=== PATIENT | female | born 1990 | race Caucasian/White ===

== ENCOUNTER 2024-10-23 19:12 | Inpatient (IN) | payer MEDICAID, SELFPAY ==
[2024-10-23] VITALS (33 sets, daily range): BP systolic 59–259; BP diastolic 40–193; PULSE 90–112; RESP 16–36; TEMP 35.6; O2SAT 95–100
--- NOTE | 2024-10-23 19:30 | RT.EKG_ITS ---
APPROVED REPORT Exam: Resting ECG Reason for Exam: liver failure Patient Location: E HR:102 bpm ECG Measurements Heart Rate 102 AXIS CA [id number] P 0 QRSd 94 QRS 35 QT 368 T [id number] QTc 480 Conclusion Sinus tach, rate 102 No interval abnormalities No STEMI No priors available for comparison
--- NOTE | 2024-10-23 19:30 | DI.CT_ITS ---
Exam(s) CT HEAD WO EXAM: CT HEAD WO CLINICAL HISTORY: Falls, cirrhosis, eval bleeds. TECHNIQUE: Imaging Protocol: Axial computed tomography images with coronal and sagittal reformatted images were created and reviewed COMPARISON: No exams were available for comparison FINDINGS: Ventricles and Extra axial spaces: Normal in size and morphology for the patient's age. Hemorrhage: None. Cerebral parenchyma: Normal. Midline shift: None. Brainstem/Cerebellum: Normal. Calvarium: Normal. Visualized Paranasal sinuses/Mastoids: There is a fluid level seen in the right sphenoid sinus. This may represent an acute sinusitis. Soft Tissues: Unremarkable. IMPRESSION: No acute intracranial process. RADIATION DOSE DELIVERED: 845.03mGy.cm Total DLP DATA REPOSITORY: All CT scans at this facility are submitted to the National Radiology Data Registry (NRDR) Dose Index Registry (DIR) with the [employer] (ACR). RADIATION OPTIMIZATION: All CT scans at this facility use at least one of these dose optimization te chniques: automated exposure control; mA and/or kV adjustment per patient size (includes targeted exa ms where dose is matched to clinical indication); or iterative reconstruction.
--- NOTE | 2024-10-23 19:30 | DI.CT_ITS ---
Exam(s) CT CHEST/ABD/PEL W EXAM: CT CHEST/ABD/PEL W CLINICAL HISTORY: Ascites, multiple falls, bruises TECHNIQUE: Imaging Protocol: Axial computed tomography images with coronal and sagittal reformatted images were created and reviewed. Lung Computer Aided Detection (CAD) was utilized. CONTRAST MATERIAL: Intravenous: Omnipaque 350 contrast volume:100 mL Oral: yes / no COMPARISON: No exams were available for comparison FINDINGS: The examination is limited due to patient motion artifact. CHEST: Tracheobronchial tree: Patent where visualized. No evidence of bronchiectasis. Pulmonary parenchyma: There are pulmonary opacities seen in the right upper, right middle and right l ower lobes. This may represent pneumonia or possible contusions. No architectural distortion. Mediastinum and Corrina: No dominant adenopathy or fluid collection. The esophagus is unremarkable. Pleura: No effusion or pneumothorax. Heart: Mild cardiomegaly. No coronary artery calcifications are seen. No pericardial effusion. Pulmonary arteries: Due to the timing of the bolus, opacification of the pulmonary arteries suboptima l for evaluation of pulmonary emboli. Aorta: Thoracic aorta non-dilated. Lymph nodes: Within normal limits. Soft tissues: Unremarkable. Bones:Within normal limits for the patient's age. There is a old nonunited right 11th rib fracture. No acute displaced rib fractures are present. ABDOMEN: Liver: The liver is enlarged with a nodular contour suspicious for hepatic cirrhosis. There abdomina l varices present. Moderate abdominal pelvic ascites is present. No measurable mass. Portal, Superior Mesenteric, and Splenic Veins: Unremarkable. Gallbladder and Biliary Tract: No radiodense calculus or dilation. Pancreas: Normal density, no abnormal calcifications or inflammatory process. Spleen: For limits of normal in size. Adrenals: No masses seen. Kidneys: Normal size, contour and axis. No radiodense stones or obstructive uropathy. No masses seen. Abdominal Aorta: Abdominal portion non-dilated. Bowel: No obstruction or bowel wall thickening. No evidence of appendicitis. Peritoneal Cavity: Moderate amount of abdominal pelvic ascites. No free air. Lymph Nodes: Within normal limits. Bones: Within normal limits for the patient's age. Soft Tissues: There is edema seen in the soft tissues in the lower abdomen and pelvis. No radiopaque foreign bodies are seen. There is mild skin thickening seen in the pannus which may reflect an acut e cellulitis. Please correlate clinically. PELVIS: Bladder: Symmetric distention, no gross wall thickening. Reproductive Organs: There does appear to be a small fibroid at the anterior aspect of the fundus of the uterus. Lymph Nodes: Within normal limits. Bones: Within normal limits. IMPRESSION: 1. There is patient motion artifact which limits examination. 2. Infiltrate seen in the right lung as described above. This may represent pneumonia. Contusions c annot be entirely excluded. Please correlate clinically. 3. No acute fracture. 4. Findings of hepatic cirrhosis with abdominal and pelvic ascites and and suspected portal venous hy pertension with abdominal varices. 5. Edema in the abdominal wall which can be seen with anasarca. Please correlate clinically. 6. No evidence of abdominal or pelvic organ injury. RADIATION DOSE DELIVERED: 1,794.64mGy.cm Total DLP DATA REPOSITORY: All CT scans at this facility are submitted to the National Radiology Data Registry (NRDR) Dose Index Registry (DIR) with the [employer] (ACR). RADIATION OPTIMIZATION: All CT scans at this facility use at least one of these dose optimization te chniques: automated exposure control; mA and/or kV adjustment per patient size (includes targeted exa ms where dose is matched to clinical indication); or iterative reconstruction.
[2024-10-23 19:53] LABS: Absolute Lymphocyte Count 1.22 10^3/uL (1.2-3.4); Basophils % 0.3 %; Eosinophils % 0.6 %; HCT 21.6 % (36.0-46.0); HGB 7.8 g/dL (11.2-15.7); Immature Grans % 0.6 %; Lymphocytes % 7.7 %; MCH 37.7 pg (27.0-33.0); MCHC 36.1 % (32.0-36.0); MCV 104 fL (80-95); Monocytes % 9.1 %; Neutrophils % 81.7 %; Platelet Count 138 10^3/uL (130-400); RBC 2.07 10^6/uL (3.93-5.22); RDW-SD 56.2 fL; WBC 15.88 10^3/uL (4.4-10.8)
[2024-10-23 19:54] LABS: Absolute Basophil Count 0.05 10^3/uL (0.0-0.2); Absolute Monocyte Count 1.45 10^3/uL (0.1-0.8); Absolute Neutrophil Count 12.97 10^3/uL (1.2-6.7)
--- NOTE | 2024-10-23 19:56 | ED.GENADUL_ITS ---
Discharge Plan Disposition Patient Disposition: Admit to [facility] Condition: Serious Discharge Details Chief Complaint: GenMedical Clinical Impression: Acute liver failure, Acute hepatic encephalopathy, Anemia, Acute hyponatremia, Hypokalemia, Hypomagnesemia, Jaundice Primary Care Provider: Dasia Mullins ED Provider: Eli Miller Home Meds and New Rx's Prescriptions: No Action Daily Multiple 1 EACH tablet 1 tab-cap PO DAILY norethindrone ac-eth estradiol [Loestrin 08/09 (21)] 1 EACH tablet 1 tab-cap PO DAILY Qty: 3 3RF baclofen 5 mg tablet 5 mg PO QHS citalopram 20 mg tablet 20 mg PO DAILY gabapentin 300 mg capsule 300 mg PO DIRECTED Rx Instructions: Take two capsules twice a day and three at HS norethindrone-e.estradiol-iron [Giulia 24 Fe] 1 mg-20 mcg (24)/75 mg (4) tablet 1 tab PO DAILY naltrexone 50 mg tablet 50 mg PO DAILY pantoprazole 40 mg tablet,delayed release (DR/EC) 40 mg PO BID ibuprofen [Advil Liqui-Gel] 200 MG capsule 800 mg PO PRN PRN HPI General Mode of arrival: wheelchair . Date/Time Provider Initiated Documentation: 10/23/24 19:26 . Limitations to Documentation: altered mental status . Information obtained by: patient, family and old records reviewed . HPI Narrative: HPI: This is a 33-year-old female patient with a past medical history significant for alcohol use disorder, alcoholic cirrhosis, gastritis, and anemia who is presenting for evaluation of jaundice and altered mental status. Of note, the patient was brought here by her family members, initially was refusing to enter the building, this is her second presentation tonight and this care of family. She was brought in by wheelchair for an evaluation. The patient reports that for the last week or so she has been increasingly jaundiced, states that this is in the setting of a recurrence of binge drinking. She states that she does not want to be in the hospital because all I have to do is drink lots of water and we will flush it out of my system and I will be fine. The patient is notably distracted, picking at her fingernails and her hair during this provider's examination, roving eye movements. Family reports that the patient has had numerous social stressors, and recently relapsed and was drinking heavily. The patient has not been seen for her liver disease in several months. Exam: Gen: Awake and alert, appears significantly ill HEENT: Scleral icterus appreciated, pupils sluggish but reactive at 3 mm bilaterally, EOMs are full without nystagmus to the patient does have some roving eye movements during EOM testing. Neck: Supple Lungs: No apparent respiratory distress, normal respiratory effort. Lung sounds clear and equal bilaterally without wheezes, rhonchi, rales CV: Appears well perfused, heart with tachycardic rate but regular rhythm, strong distal pulses Abdomen: Distended but soft, nontender MSK: Moves 4 extremities without apparent limitation in ROM. Peripheral edema is noted x 4 extremities. Patient has ecchymosis to the dorsal aspect of the right hand without deformity or tenderness Skin: Visualized skin significantly jaundiced, with extensive ecchymosis over the entirety of the patient's torso and abdomen. Neuro: Poor balance with transfer from wheelchair to bed, symmetrical strength and no reported sensory deficits. The patient is alert, oriented to person and place only, not to time. Bilateral asterixis present MDM: This is a 33-year-old female patient presenting for evaluation of jaundice. My differential includes but is not limited to liver failure/cirrhosis exacerbation, likely alcoholic in the setting of her recent binge drinking. I certainly considered hepatorenal and hepatic cardiac disease, coagulopathy, anemia, thrombocytopenia. Consider dehydration, kidney injury. The patient had negative hepatitis testing several years ago. Considered hepatic encephalopathy, SBP though the patient is without fever or abdominal pain. Considered intracranial hemorrhage, intrathoracic and abdominal injuries due to her trauma/falls. At this time, the patient is not oriented to time, and is not able to demonstrate capacity during this provider's examination as to the severity of her illness and cannot verbalize the benefits of staying in the hospital as well as the risks of refusal of care/leaving the hospital AGAINST MEDICAL ADVICE. Given her significant medical comorbidities and numerous traumatic incidents, I do not feel that this patient has the capacity to refuse care at this time, and she was placed on a medical hold. The patient was informed of this and transferred to the hospital bed for evaluation and workup. We will obtain an EKG, laboratory studies to include CBC, CMP, magnesium, troponin, INR, ammonia, type and screen, ethanol, and urinalysis. I will obtain a CT of the brain as well as chest abdomen pelvis to evaluate for traumatic injuries. ED Course: EKG reviewed by myself, showing a sinus tachycardia without evidence of ischemia or significant interval abnormality. I reviewed the patient's laboratory studies, and I note a white count of 15.8, anemia to 7.8, no thrombocytopenia. INR is elevated at 3.1. Ammonia is 40, initial Trope was negative, metabolic panel concerning for hyponatremia to 123, low potassium of 2.7, and a creatinine of 1.5. Magnesium also slightly low at 1.5, bilirubin markedly elevated at 31.7 total, AST 294 and ALT 73, alkaline phosphatase 148. BNP elevated 20,000, albumin low at 1.9. Lipase is 150, less than 3 times the upper limit of normal and unlikely to represent acute pancreatitis. Given the above spectrum of laboratory abnormalities I am quite concerned for liver failure, with associated early hepatic encephalopathy. Meld?NA+ 38. The patient's potassium and magnesium were repleted, I reviewed the CT imaging which shows no evidence of intracranial hemorrhage or other abnormality, diffuse anasarca and ascites is appreciated but no traumatic findings on CT abdomen and pelvis. Small opacity which may represent aspiration pneumonia, in this patient with no hypoxia or fever we will hold on empiric antibiosis. I did reach out to [facility] and discussed this patient's case with their hepatology fellow. Unfortunately, they are not a transplant center and given the patient's young age and severe liver failure they did recommend reaching out to transfer centers of facilities that perform transplant. I reached out initially to [facility], who unfortunately is not accepting patients for their transplant evaluations until Friday. Given the anticipated difficulty with transfer at this time of night, the decision was made to admit this patient to our hospitalist team, with a plan to call facilities back in the morning or on Friday. The patient consented to admission, and was graciously accepted by the hospitalist service for ongoing workup and management. She remained hemodynamically appropriate while under my care. Eli Miller MD Related Data Home Medications ?Medication ?Instructions ?Recorded ?Confirmed ibuprofen 200 mg capsule (Advil 800 mg PO PRN PRN 05/01/17 12/05/21 Liqui-Gel) multivitamin-ferrous 1 tab-cap PO DAILY 05/13/17 12/05/21 fumarate-folic acid 18 mg-400 mcg tablet (Daily Multiple) norethindrone acetate 1 mg-ethinyl 1 tab-cap PO DAILY ##3 05/13/17 12/05/21 estradiol 20 mcg tablet (Loestrin) baclofen 5 mg tablet 5 mg PO QHS 12/04/21 12/05/21 citalopram 20 mg tablet 20 mg PO DAILY 12/04/21 12/05/21 gabapentin 300 mg capsule 300 mg PO DIRECTED 12/04/21 12/05/21 naltrexone 50 mg tablet 50 mg PO DAILY 12/04/21 12/05/21 norethindrone 1 mg-ethinyl 1 tab PO DAILY 12/04/21 12/05/21 estradiol 20 mcg (24)-iron 75 mg (4) tablet (Giulia 24 Fe) pantoprazole 40 mg tablet,delayed 40 mg PO BID 12/04/21 12/05/21 release Previous Rx's ?Medication ?Instructions ?Recorded norethindrone acetate 1 mg-ethinyl 1 tab-cap PO DAILY ##3 05/13/17 estradiol 20 mcg tablet (Loestrin) Allergies Allergy/AdvReac Type Severity Reaction Status Date / Time No Known Allergies Allergy Unverified 12/05/21 11:16 General Stated Complaint: GenMedical KEIKO: 3 Course Vital Signs Vital signs: Vital Signs Respiratory Rate 20 10/23/24 19:24 Temperature 35.6 C L 10/23/24 19:27 Temperature Source Tympanic 10/23/24 19:27 Pulse 99 H 10/23/24 19:27 Respiratory Rate 18 10/23/24 19:27 Respiratory Effort Labored 10/23/24 19:24 Respiratory Depth Normal 10/23/24 19:24 Respiratory Pattern Normal 10/23/24 19:24 Blood Pressure 127/69 10/23/24 19:27 Pulse Oximetry 100 10/23/24 19:27 Oxygen Delivery Method Room Air 10/23/24 19:27 Medical Decision Making Quality:SDOH Health Related Social Needs: No Data to Display Critical Care Time Critical Care Time Critical Care Time: Yes Total Critical Care Time: 50 Attestation: Upon my evaluation, this patient had a high probability of imminent or life- threatening deterioration due to acute liver failure due to alcoholic cirrhosis, hepatic encephalopathy which required my direct attention, intervention, and personal management. I have personally provided 50 minutes of critical care time exclusive of time spent on separately billable procedures. Time includes review of laboratory data, radiology results, discussion with consultants, and monitoring for potential decompensation. Interventions were performed as documented above. Eli Miller MD [facility] All Active Problems (Updated 10/24/24 @ 00:08 by Eli Miller MD) Jaundice (Acute) Hypomagnesemia (Acute) Hypokalemia (Acute) Acute hyponatremia (Acute) Anemia (Chronic) Acute hepatic encephalopathy (Acute) Acute liver failure (Acute) Medical History Alcohol abuse Alcoholic cirrhosis Anemia Gastritis Mixed anxiety and depressive disorder Muscle weakness Sensory polyneuropathy Surgical History History of esophagogastroduodenoscopy (EGD) History of liver biopsy Family History Mother Thyroid disorder Social History Smoking/Tobacco Use Status: Never Smoking risk assessment performed?: Yes Alcohol Intake: current Alcohol Intake frequency: a few times a week Alcohol type: beer Drug use: Occasionally Substance use type: marijuana Communication Needs: Corrective Lenses Education Level: master's degree Pets and animals: Yes Pets and animals: cat(s) What type of physical activity do you participate in: occasional exercise Working smoke detector in home: Yes Carbon monox detector in home: Yes Do you feel safe in your relationship?: Yes
[2024-10-23 20:02] LABS: INR 3.1 (0.9-1.1); Prothrombin Time 28.9 sec (9.1-11.1)
[2024-10-23 20:09] LABS: Ammonia 40 umol/L (11-32)
[2024-10-23 20:09] LABS: Diff Comment RBC Morph Reviewed; RBC Morphology Normal
[2024-10-23 20:17] LABS: ALT 73 U/L (14-59); AST 294 U/L (15-37); Albumin 1.9 g/dL (3.4-5.0); Alkaline Phosphatase 148 U/L (46-116); Anion Gap 14.4 mmol/L (3-11); BUN 9 mg/dL (7-18); CO2 19.6 mmol/L (21.0-32.0); CREATININE 1.5 mg/dL (0.55-1.02); Chloride 89 mmol/L (98-107); Estimated GFR 46.32 (mL/min/1.73m2); Glucose 97 mg/dL (74-106); Lipase 150 U/L (<78); Magnesium 1.5 mg/dL (1.8-2.4); NT-proBNP 1010 pg/mL (<300); Total Protein 6.9 g/dL (6.4-8.2); Troponin I 15 ng/L (<or=51)
[2024-10-23 20:20] LABS: Bilirubin, Total 31.7 mg/dL (0.2-1.0); Potassium 2.7 mmol/L (3.5-5.1); Sodium 123 mmol/L (136-145)
[2024-10-23 20:24] LABS: ETHANOL BLOOD 3.9 mg/dL (<10)
[2024-10-23] MEDS: Normal Saline - Diluent 50 ML VIAL IJ (20:33)
[2024-10-23] MEDS: Omnipaque 350 MG/ML 100 ML BTL IJ (20:34)
[2024-10-23] MEDS: POTASSIUM CHLORIDE 10 MEQ/100 ML BAG 100 MEQ IV_INF ×2 (20:51→22:00)
[2024-10-23] MEDS: MAGNESIUM SULFATE 2 GM/50 ML BAG IV_INF (20:51)
[2024-10-23] MEDS: Potassium Chloride 20 MEQ TABCR 40 MEQ PO (20:52)
--- NOTE | 2024-10-23 21:08 | DI.VRAD_ITS ---
PROCEDURE INFORMATION: Exam: CT Head Without Contrast Exam date and time: 10/23/2024 8:32 PM Age: 33 years old Clinical indication: Other: Falls, cirrhosis, eval bleeds TECHNIQUE: Imaging protocol: Computed tomography of the head without contrast. COMPARISON: No relevant prior studies available. FINDINGS: Brain: Normal. No hemorrhage. Unremarkable white matter. No mass effect. Cerebral ventricles: No ventriculomegaly. Paranasal sinuses: Sphenoid sinus air-fluid level. Mastoid air cells: Visualized mastoid air cells are well aerated. Bones: Unremarkable. No acute fracture. Soft tissues: Unremarkable. IMPRESSION: 1. Intracranial structures are unremarkable. No hemorrhage, edema, or large territory acute CVA. 2. Sphenoid sinus air-fluid level. This may represent acute sinusitis. 3. No skull fracture or traumatic skull change. 4. Scalp soft tissues are unremarkable. Dictated and Authenticated by: Omer Washburn MD. Orderin [facility] Leon Benitez MD
[2024-10-23 21:09] LABS: Lab Add On Test DONE
[2024-10-23 21:26] LABS: Bilirubin, Direct 22.4 mg/dL (0.0-0.2)
--- NOTE | 2024-10-23 21:31 | DI.VRAD_ITS ---
PROCEDURE INFORMATION: Exam: CT Chest With Contrast; Diagnostic Exam date and time: 10/23/2024 8:36 PM Age: 33 years old Clinical indication: Other: Ascites, multiple falls, bruises TECHNIQUE: Imaging protocol: Diagnostic computed tomography of the chest with contrast. 3D rendering (Not supervised by radiologist): MIP and/or 3D reconstructed images were created by the technologist. Contrast material: OMNIPAQUE 350; Contrast volume: 100 ml; Contrast route: INTRAVENOUS (IV); COMPARISON: No relevant prior studies available. FINDINGS: Limitations: Extensive streak artifact, created at least in part by arm positioning. Lungs: Lung winn somewhat obscured by artifact from motion. Patchy opacity in the right middle lobe. No pulmonary laceration. Pleural spaces: No pleural effusion or pneumothorax. Heart: Normal-sized heart. Lymph nodes: No pathologically enlarged mediastinal or hilar lymph nodes. Vasculature: No thoracic aortic aneurysm or dissection. Exam not tailored to evaluate the pulmonary arterial vasculature. Within the limits of the exam, no large central pulmonary embolism demonstrated in the pulmonary trunk or main pulmonary arteries. Bones/joints: Chronic nonunion of an old fracture through the posterior aspect of the right 11th rib with well corticated fracture margins. No acute fracture seen among the bones of the chest. Soft tissues: No acute fracture seen among the bones of the chest. IMPRESSION: 1. No acute visceral or bony injury seen in the chest. 2. Patchy opacity in the right middle lobe with an appearance suspicious for aspiration for pneumonia. PROCEDURE INFORMATION: Exam: CT Abdomen And Pelvis With Contrast Exam date and time: 10/23/2024 8:36 PM Age: 33 years old Clinical indication: Other: Ascites, multiple falls, bruises TECHNIQUE: Imaging protocol: Computed tomography of the abdomen and pelvis with contrast. 3D rendering (Not supervised by radiologist): MIP and/or 3D reconstructed images were created by the technologist. Contrast material: OMNIPAQUE 350; Contrast volume: 100 ml; Contrast route: INTRAVENOUS (IV); COMPARISON: No relevant prior studies available. FINDINGS: Limitations: Examination degraded by diffuse technical artifact. Low coovkv-oh-esdfx ratio with limited resolution. Extensive streak artifact, created at least in part by arm positioning. Liver: Liver partially obscured by extensive artifact but demonstrating a nodular contour with relative hypertrophy of the lateral left hepatic segment and caudate lobe characteristic of hepatic cirrhosis. Gallbladder and biliary ducts: Gallbladder largely obscured by artifact. Within the limits of visualization, no frankly calcified gallstones or biliary dilatation demonstrated. Pancreas: Pancreas partially obscured but grossly unremarkable, as seen. Spleen: Spleen partially obscured by artifact but grossly unremarkable, as seen. Adrenal glands: Adrenal glands partially obscured but grossly unremarkable, as seen. Kidneys and ureters: Kidneys partially obscured by artifact. No radiopaque renal calculi or hydronephrosis. No obstructing ureteral stones. Stomach and bowel: No oral contrast. Stomach partially decompressed. No small bowel dilatation to suggest obstruction. Colon partially obscured by close apposition of adjacent structures but largely well evacuated of fecal material and collapsed. Apparent mural thickening through segments of the collapsed colon. Artifact of incomplete distention suspected. Colitis not excluded. Appendix: Appendix partially obscured but normal in caliber and appearance through its visualized portion. Intraperitoneal space: Extensive ascites. No free air. Vasculature: Normal caliber abdominal aorta. Bulky bilateral retroperitoneal varices. Subcutaneous varices. Perisplenic varices. Suggestion of small distal paraesophageal varices. Portal venous hypertension suspected. Clinical correlation recommended. Lymph nodes: No pathologically enlarged mesenteric, retroperitoneal, or pelvic sidewall lymph nodes. Urinary bladder: Urinary bladder partially collapsed but grossly unremarkable, as seen. Reproductive: Uterus and ovaries partially obscured and not well evaluated but grossly normal in size. Suggestion of a 1 cm leiomyoma arising from the anterior uterine fundus. Bones/joints: No acute fracture seen among the bones of the abdomen or pelvis. Transitional L5 vertebral body, hemisacralized on the right. Soft tissues: Extensive subcutaneous edema. Skin thickening extending across the lower pannus. Direct inspection recommended to exclude acute cellulitis or other dermatologic pathology. Patchy focal subcutaneous densities partially visualized lateral to the right hip joint. Subcutaneous contusions considered in the setting of trauma. Alternative pathology not excluded. IMPRESSION: 1. Cirrhotic liver morphology with extensive varices, as described, suggesting portal venous hypertension. 2. Extensive ascites and extensive subcutaneous edema suspicious for anasarca. Clinical correlation recommended. 3. Exam limitations, as above. Within the limits of the exam, no gross acute visceral or bony injury seen in the abdomen or pelvis. Dictated and Authenticated by: Sedrick Bland MD. Orderin [facility] Leon Benitez MD
[2024-10-23 21:41] LABS: Troponin I 17 ng/L (<or=51)
[2024-10-24] VITALS (56 sets, daily range): BP systolic 79–143; BP diastolic 39–128; PULSE 85–159; RESP 16–32; TEMP 36.8–37.5; O2SAT 92–99
--- NOTE | 2024-10-24 00:13 | HPE_ITS ---
Date of service: 10/24/24 Time of Service: 00:14 Assessment and Plan Assessment and plan (1) Alcoholic cirrhosis: Status: Acute Assessment and plan: The patient comes in w/ increased confusion, severe jaundice, lower extremity pitting edema and a history of alcohol use consistent with alcoholic liver cirrhosis and concern for hepatic encephalopathy. Her lab evaluation shows elevation of AST/ALT, Ammonia, Total Bili and INR all consistent w/ liver failure. Her CT abdomen/pelvis does show hepatomegaly w/ cirrhotic features, extensive ascites and portal hypertension. Her overall prognosis seems poor w/ her lab functions and Maddre's Score. ER deferred doing a diagnostic paracentesis but considering her leukocytosis, liver cirrhosis and AMS this is concerning for possible SBP. Other complications of her liver failure include electrolyte imbalance w/ hyponatremia and hypokalemia and concern for hepatorenal syndrome w/ Cr > 1.5. Na-MELD - 38 w/ 65% mortality in 90 days Maddrey's Discriminant Function - 113 Poor prognosis -Start Methylprednisolone 32mg daily x28 days. Prednisolone is not available in EMR -Start diuresis w/ Aldactone 200 and Lasix 80mg daily -Monitor Cr w/ response to diuresis w/ concern for HRS. -Consider paracentesis in AM w/ fluid analysis. Consider Albumin repletion if large volume -Obtain Echo -Start IV CTX for c/f SBP w/ AMS -Start DVT PPx (2) Acute hepatic encephalopathy: Status: Acute Assessment and plan: The patient comes in w/ increased confusion, severe jaundice, lower extremity pitting edema and a history of alcohol use consistent with alcoholic liver cirrhosis and concern for hepatic encephalopathy. Her lab evaluation shows elevation of AST/ALT, Ammonia, Total Bili and INR all consistent w/ liver failure. Her CT abdomen/pelvis does show hepatomegaly w/ cirrhotic features, extensive ascites and portal hypertension. Her overall prognosis seems poor w/ her lab functions and Maddre's Score. ER deferred doing a diagnostic paracentesis but considering her leukocytosis, liver cirrhosis and AMS this is concerning for possible SBP. Other complications of her liver failure include electrolyte imbalance w/ hyponatremia and hypokalemia and concern for hepatorenal syndrome w/ Cr > 1.5. Na-MELD - 38 w/ 65% mortality in 90 days Maddrey's Discriminant Function - 113 Poor prognosis -Start Lactulose and monitor Ammonia and mental status (3) Acute hyponatremia: Status: Acute Assessment and plan: She has extensive ascites on imaging along w/ evidence of volume overload. Her hyponatremia is overall most likely due to volume overload for which she would benefit from Lasix/Aldactone. Monitor Cr s/p diuresis. -Start Aldactone 200mg and Lasix 80mg daily -Monitor I/O -Monitor Cr (4) Hypokalemia: Status: Acute Assessment and plan: -ER repleted w/ 40meq x1 (5) Hypomagnesemia: Status: Acute Assessment and plan: -Replete w/ 2g IV Mg (6) Leukocytosis: Status: Acute Assessment and plan: This maybe reactive considering her alcoholic liver cirrhosis. She has no fever but there is concern for SBP w/ her ER admission for AMS. -Obtain BCx x2 -Obtain UCx -Consider paracentesis w/ fluid analysis -Start IV ABX for c/f SBP (7) Macrocytic anemia: Status: Acute Assessment and plan: -Obtain Folic Acid and B12 (8) Elevated brain natriuretic peptide (BNP) level: Status: Acute Assessment and plan: Most likely d/t volume overload w/ hepatic alcoholic cirrhosis. -Obtain Echo History of Present Illness History of Present Illness Chief Complaint: Jaundice Narrative: The patient akel 33 y/o C F w/ PMH Alcoholic Liver Cirrhosis who is brought in today by her fiance due to worsening altered mental status w/ increased confusion, increased falls and worsening jaundice. The patient is able to give a history but lacks many details. She only reports of jaundice but denies any other symptoms. She has no constitutional symptoms. She denies any headaches, eye pain or blurry vision. She denies any chest pain, palpitations, coughing, wheezing or dyspnea. She has not had any episodes of hemoptysis. She denies any abdominal pain, n/v/d, hematemesis, melena, hematochezia, pale colored stools or changes in the color of her urine. She denies any weight gain, lower extremity edema or abdominal distention. She reports of drinking a few beers in the past weeks but is unable to give any further details. Her fiance notes that she has had a chronic alcohol intake of 4-6 beers per day for many years. He also notes that her confusion has becoming worse as well as her having frequent falls. Her fiance does note that she has increased abdominal distention and lower extremity edema. She also has had multiple ecchymoses. Review of Systems Constitutional Constitutional: Denies fever(s), Reports frequent falls, Denies headache(s), Denies night sweats, Reports poor appetite and Denies weight loss Eyes Eyes: Denies diplopia and Denies eye pain ENT Ears, Nose, Mouth, and Throat: Denies bleeding gums, Denies headache(s), Denies epistaxis, Denies odynophagia and Denies throat swelling Cardiovascular Cardiovascular: Denies chest pain, Denies rapid heart rate and Denies dyspnea Respiratory Respiratory: Denies cough, Denies hemoptysis, Denies dyspnea and Denies wheezing Gastrointestinal Gastrointestinal: Denies abdominal pain, Denies melena, Denies hematochezia, Denies coffee ground emesis, Denies constipation, Denies loose stools and Denies odynophagia Genitourinary Genitourinary: Denies hematuria Musculoskeletal Musculoskeletal: Denies arthralgias and Denies joint swelling Neurologic Neurologic: Reports confusion, Reports frequent falls, Denies headache(s) and Denies localized weakness Psychiatric Psychiatric: Reports change in appetite and Reports confusion Allergic/Immunologic Allergic/Immunologic: Denies throat swelling and Denies wheezing PFSH All Active Problems (Updated 10/24/24 @ 01:16 by Jose Michel MD) Alcoholic cirrhosis (Acute) Elevated brain natriuretic peptide (BNP) level (Acute) Macrocytic anemia (Acute) Leukocytosis (Acute) Jaundice (Acute) Hypomagnesemia (Acute) Hypokalemia (Acute) Acute hyponatremia (Acute) Anemia (Chronic) Acute hepatic encephalopathy (Acute) Acute liver failure (Acute) Medical History Alcohol abuse Alcoholic cirrhosis Anemia Gastritis Mixed anxiety and depressive disorder Muscle weakness Sensory polyneuropathy Surgical History History of esophagogastroduodenoscopy (EGD) History of liver biopsy Family History Mother Thyroid disorder Social History Smoking/Tobacco Use Status: Never Smoking risk assessment performed?: Yes Alcohol Intake: current Alcohol Intake frequency: a few times a week Alcohol type: beer Drug use: Occasionally Substance use type: marijuana Communication Needs: Corrective Lenses Education Level: master's degree Pets and animals: Yes Pets and animals: cat(s) What type of physical activity do you participate in: occasional exercise Working smoke detector in home: Yes Carbon monox detector in home: Yes Do you feel safe in your relationship?: Yes Meds Allergies and Home Medications Allergies Allergy/AdvReac Type Severity Reaction Status Date / Time No Known Allergies Allergy Unverified 12/05/21 11:16 Home Medications ?Medication ?Instructions ?Recorded ?Confirmed ?Type ibuprofen 200 mg capsule (Advil 800 mg PO PRN PRN 05/01/17 12/05/21 History Liqui-Gel) multivitamin-ferrous 1 tab-cap PO DAILY 05/13/17 12/05/21 History fumarate-folic acid 18 mg-400 mcg tablet (Daily Multiple) norethindrone acetate 1 mg-ethinyl 1 tab-cap PO DAILY ##3 05/13/17 12/05/21 Rx estradiol 20 mcg tablet (Loestrin) baclofen 5 mg tablet 5 mg PO QHS 12/04/21 12/05/21 History citalopram 20 mg tablet 20 mg PO DAILY 12/04/21 12/05/21 History gabapentin 300 mg capsule 300 mg PO DIRECTED 12/04/21 12/05/21 History naltrexone 50 mg tablet 50 mg PO DAILY 12/04/21 12/05/21 History norethindrone 1 mg-ethinyl 1 tab PO DAILY 12/04/21 12/05/21 History estradiol 20 mcg (24)-iron 75 mg (4) tablet (Giulia 24 Fe) pantoprazole 40 mg tablet,delayed 40 mg PO BID 12/04/21 12/05/21 History release Exam Const General: no acute distress, acute distress and not combative HENMT Head: normal to inspection Ears: hearing grossly normal bilaterally and external ears normal General nose exam: external nose normal Face and sinus: normal facial exam Eyes Alignment and Position: alignment normal EOM: EOM intact bilaterally Other: Icteric sclera Neck Neck: normal visual inspection, full ROM and no lymphadenopathy Chest Chest: normal inspection of the chest Resp Effort & Inspection: normal respiratory effort Auscultation: clear to auscultation bilaterally Cardio Rate: regular rate Rhythm: regular rhythm Other: 2+ pitting edema bilaterally GI Inspection: normal to inspection Palpation: soft Auscultation: normal bowel sounds Skin General skin exam: other (Generalized Jaundice w/ multiple ecchymoses) Neuro Other: Bilateral asterexis Extrem General: full ROM Psych Appearance: grossly normal Mental Status: other (Confused) Mood: other (Confused) Results Imaging Imaging Studies: CT Head - 1. Intracranial structures are unremarkable. No hemorrhage, edema, or large territory acute CVA. 2. Sphenoid sinus air-fluid level. This may represent acute sinusitis. 3. No skull fracture or traumatic skull change. 4. Scalp soft tissues are unremarkable. CT Chest/Abdomen/Pelvis- 1. Cirrhotic liver morphology with extensive varices, as described, suggesting portal venous hypertension. 2. Extensive ascites and extensive subcutaneous edema suspicious for anasarca. Clinical correlation recommended. 3. Exam limitations, as above. Within the limits of the exam, no gross acute visceral or bony injury seen in the abdomen or pelvis. WBC 15.88 HG 7.8 PLT 138 NA 123 K 2.7 Cl 89 CO2 19.6 AG 14.4 Cr 1.5 GFR 46 Albumin 1.9 Tot Bili 31.7 AST 294 ALT 148 Ammonia 40 Lipase 150 INR 3.1 Ca 8 Mg 1.5 INR 3.1 Labs 10/23/24 19:43 10/23/24 19:43 Labs: Laboratory Results - last 24 hr 10/23/24 10/23/24 10/23/24 19:43 19:54 21:15 WBC 15.88 H RBC 2.07 L Hgb 7.8 L Hct 21.6 L MCV 104 H MCH 37.7 H MCHC 36.1 H RDW 15.0 H Plt Count 138 MPV 10.0 Immature Gran % 0.6 Neutrophils % 81.7 Lymphocytes % 7.7 Monocytes % 9.1 Eosinophils % 0.6 Basophils % 0.3 Nucleated RBC % 0.0 Absolute Neutrophils 12.97 H Absolute Lymphocytes 1.22 Absolute Monocytes 1.45 H Absolute Eosinophils 0.10 Absolute Basophils 0.05 RBC Morphology Normal PT 28.9 H INR 3.1 H Sodium 123 L* Potassium 2.7 L* Chloride 89 L Carbon Dioxide 19.6 L Anion Gap 14.4 H BUN 9 Creatinine 1.5 H Est GFR (CKD-EPI 2020) 46.32 Glucose 97 Calcium 8.0 L Magnesium 1.5 L Total Bilirubin 31.7 H* Conjugated Bilirubin 22.4 H AST 294 H ALT 73 H Alkaline Phosphatase 148 H Ammonia 40 H Troponin I 15 17 NT-Pro-B Natriuret Pep 1010 H Total Protein 6.9 Albumin 1.9 L Lipase 150 H Ethyl Alcohol 3.9 Add-On Test Request DONE ABO/Rh B Negative Antibody Screen NEGATIVE 10/23/24 22:39 WBC RBC Hgb Hct MCV MCH MCHC RDW Plt Count MPV Immature Gran % Neutrophils % Lymphocytes % Monocytes % Eosinophils % Basophils % Nucleated RBC % Absolute Neutrophils Absolute Lymphocytes Absolute Monocytes Absolute Eosinophils Absolute Basophils RBC Morphology PT INR Sodium Potassium Chloride Carbon Dioxide Anion Gap BUN Creatinine Est GFR (CKD-EPI 2020) Glucose Calcium Magnesium Total Bilirubin Conjugated Bilirubin AST ALT Alkaline Phosphatase Ammonia Troponin I Cancelled NT-Pro-B Natriuret Pep Total Protein Albumin Lipase Ethyl Alcohol Add-On Test Request ABO/Rh Antibody Screen Last Vital Signs Temp 35.6 C L 10/23/24 19:27 Pulse 97 H 10/23/24 20:20 Resp 26 H 10/23/24 20:20 BP 122/54 L 10/23/24 20:15 Pulse Ox 97 10/23/24 20:20 Time Spent Time spent with Patient: 55-74 minutes Time was spent: preparing to see the patient(eg.review tests), obtaining and/or reviewing separately otained hiistory, ordering medications,tests, procedures, referring, communicating with other health transitional care liaison, indepentently interpreting results and counseling the patient
[2024-10-24] MEDS: cefTRIAXone 2 GM/50 ML BAG IVPB ×2 (03:21→22:15)
[2024-10-24] MEDS: Furosemide 40 MG/4 ML VIAL 80 MG IVP (03:21)
[2024-10-24] MEDS: Normal Saline Flush 10 ML SYR IVP ×4 (03:22→20:00)
[2024-10-24] MEDS: MAGNESIUM SULFATE 2 GM/50 ML BAG IV_INF (04:39)
[2024-10-24] MEDS: Lactulose 20 GM/30 ML CUP PO ×2 (07:39→19:59)
[2024-10-24 08:05] LABS: MCH 37.3 pg (27.0-33.0); MCHC 35.7 % (32.0-36.0); MCV 105 fL (80-95); MPV 9.9 fL (8.0-11.0); RDW 15.6 % (11.7-14.6); RDW-SD 59.2 fL; WBC 13.93 10^3/uL (4.4-10.8)
[2024-10-24 08:22] LABS: Platelet Count 98 10^3/uL (130-400); RBC 1.77 10^6/uL (3.93-5.22)
[2024-10-24 08:24] LABS: HCT 18.5 % (36.0-46.0); HGB 6.6 g/dL (11.2-15.7)
[2024-10-24 08:50] LABS: Acetaminophen < 2 ug/mL (10-30)
[2024-10-24 08:54] LABS: ALT 64 U/L (14-59); AST 235 U/L (15-37); Albumin 1.6 g/dL (3.4-5.0); Alkaline Phosphatase 128 U/L (46-116); Anion Gap 11.5 mmol/L (3-11); BUN 12 mg/dL (7-18); CO2 20.5 mmol/L (21.0-32.0); CREATININE 1.3 mg/dL (0.55-1.02); Calcium 7.6 mg/dL (8.5-10.1); Chloride 91 mmol/L (98-107); Glucose 87 mg/dL (74-106)
[2024-10-24 09:00] LABS: Folate 2.2 ng/mL (8.6-20.0)
--- NOTE | 2024-10-24 09:07 | INITIAL_ITS ---
Date of service: 10/24/24 Time of Service: 09:07 Care Management Initial Assmt Initial Assessment Reason for Hospitalization: Alcoholic cirrhosis, Acute hepatic encephalopathy, Acute hyponatremia Functional Status/Living Situation Patient Presentation: Sandi was awake and lying in bed when CM met with her. She is talkative, pleasant, appears somewhat confused and at times uses unconnected words. Per pt, she lives in [place] with the only supportive person she has which is her significant other of 9 years, Arun. Sandi states that she needs to get healthy in order to have a healthy relationship with her mother and family. Her brother (Vik) called the nursing station during this interview (not on HIPAA); and even though she did not choose to take the call, she does acknowl edge that she does have a brother Vik that lives in [place] and has his contact info. Sandi is agreeable to meet with a sobriety trampoline team coach from [facility], when she is more clear. She also identifies that she has a Master degree in biology and minor in chemistry. 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 Town of Residence: [place] Resides with: Other (Significant other Arun) Natural Supports: Significant other Arun, no other supportive family per pt. Employment Status: Unemployed Instrumental Activities of Daily Living (ADLs): Independent Medications Medication Management: No Issues/Barriers identified Physical Functioning/Mobility Assistive Device: None Advance Directives Advance Directives: Do you have an Advance Directive: N 10/23/24 19:12 AD On File at [facility]: N 10/23/24 19:12 Date Asked 10/23/24 10/23/24 19:12 AD Date Reviewed COLST On File at [facility] No 10/23/24 19:12 COLST Date Scanned Code Status Resuscitation Status Full Code Portal Pt does not currently have a portal and education provided: Yes Insurance Coverage/Financial Issues Insurance: Medicaid Financial Issues: Unemployed, is agreeable to a [facility] referral to learn more about community supports and resources. Care Team Visit Care Team Role Provider Type Vik Maynard MD [facility] STAFF PHYSICIAN Dasia Mullins Primary Care Provider [facility] Eli Miller MD Emergency Provider [facility] STAFF PHYSICIAN Jose Michel MD Admit Provider [facility] STAFF PHYSICIAN Attending Provider Discharge Potential Discharge Needs: PT Evaluation, PCP F/U Appt and Other ( ) Anticipated Barriers to Discharge: None Identified Patient/Family Education Needs: Review discharge instructions, discuss Ask Me Three Transportation: Private vehicle Plan: Sandi continues to require close monitoring in the ICU. She may benefit from a PT eval when she is medically stable, and would like to meet with a sobriety trampoline team coach from [facility] when she can think better. Discharge planning continues. CM will follow. Social Determinants of Health Screening Will the Patient Participate in the Screening?: Unable to obtain PFSH All Active Problems (Updated 10/24/24 @ 15:57 by Vik Maynard) Hepatorenal syndrome (Acute) Acute alcoholic hepatitis (Acute) Alcoholic cirrhosis (Acute) Elevated brain natriuretic peptide (BNP) level (Acute) Macrocytic anemia (Acute) Leukocytosis (Acute) Jaundice (Acute) Hypomagnesemia (Acute) Hypokalemia (Acute) Acute hyponatremia (Acute) Anemia (Chronic) Acute hepatic encephalopathy (Acute) Acute liver failure (Acute) Medical History Alcohol abuse Alcoholic cirrhosis Anemia Gastritis Mixed anxiety and depressive disorder Muscle weakness Sensory polyneuropathy Surgical History History of esophagogastroduodenoscopy (EGD) History of liver biopsy Family History Mother Thyroid disorder Social History Smoking/Tobacco Use Status: Never Smoking risk assessment performed?: Yes Alcohol Intake: current Alcohol Intake frequency: a few times a week Alcohol type: beer Drug use: Occasionally Substance use type: marijuana Communication Needs: Corrective Lenses Education Level: master's degree Pets and animals: Yes Pets and animals: cat(s) What type of physical activity do you participate in: occasional exercise Working smoke detector in home: Yes Carbon monox detector in home: Yes Do you feel safe in your relationship?: Yes
[2024-10-24 09:24] LABS: Bilirubin, Total 28.5 mg/dL (0.2-1.0)
[2024-10-24 09:25] LABS: Potassium 2.6 mmol/L (3.5-5.1); Sodium 123 mmol/L (136-145); Total Protein 5.7 g/dL (6.4-8.2)
[2024-10-24 09:38] LABS: Lab Add On Test DONE
[2024-10-24 09:42] LABS: INR 3.1 (0.9-1.1); Prothrombin Time 28.6 sec (9.1-11.1)
[2024-10-24 10:36] LABS: Magnesium 2.2 mg/dL (1.8-2.4)
[2024-10-24 11:06] LABS: Vitamin B12 > 2000 pg/mL (193-986)
--- NOTE | 2024-10-24 12:25 | W.PM.PROGNOT ---
Date of Service Date of service: 10/24/24 Time of Service: 12:25 Assessment and Plan Assessment and plan (1) Acute liver failure: Status: Acute Assessment and plan: This is most c/w acute on chronic liver failure with elevated bili/INR and some enceophalopathy and organ damage with MAO. Fortunately she has been hemodynamically stable without severe systemic inflammation. Case reviewed with Dr. Majano at [facility] GI again today. Fortunately we have seen some improvement in numbers overnight. Na-MELD - 38 on admission (65% mortality in 90 days) Maddrey's Discriminant Function - 113 Poor prognosis, started methylprednisolone as below, though consider stopping if signs of worsening infection per GI. -Stopped diuresis given concern for HRS -Consulted surgery to consider paracentesis in AM w/ fluid analysis, large volume not needed. -Echo when available. -Started IV CTX for possible SBP w/ AMS, continue unless we can get a paracentesis that is negative. -GI agrees with albumin infision x 2 days given some degree of hepatorenal syndrome. -mild/moderate encephalopathy, continue lactulose. -[facility] GI/transplant was called from ED, would like update if patient does not continue to improve. (2) Acute alcoholic hepatitis: Status: Acute Assessment and plan: See above, on steroids Monitor response, continue x 28 days if responding. (3) Acute hyponatremia: Status: Acute Assessment and plan: Associated with decompenated cirrhosis. Treating as above, stopping renal toxins, giving albumin, fluid restrict. this may be contributing to MS changes, hard to say, but does portend worse prognosis (4) Hypokalemia: Status: Acute Assessment and plan: -ER repleted w/ 40meq x1, given additional IV and po today, follow (5) Hypomagnesemia: Status: Acute Assessment and plan: -Repleted w/ 2g IV Mg, imrpoved this morning. (6) Leukocytosis: Status: Acute Assessment and plan: This maybe reactive considering her alcoholic liver cirrhosis. She has no fever but there is concern for SBP w/ her ER admission for AMS. -Obtained BCx x2 -Obtained UCx -Try to get paracentesis w/ fluid analysis -Started IV ABX for SBP as above (7) Macrocytic anemia: Status: Acute Assessment and plan: - Folic Acid and B12 okay - No signs of active bleed, but high risk for bleeding, as well as bone marrow suppression and gastritis with poor iron absorbtion. - Transfuse x 1 unit today and follow this afternoon - check iron (8) Hepatorenal syndrome: Status: Acute Assessment and plan: as above (9) Acute hepatic encephalopathy: Status: Acute Assessment and plan: as above (10) Alcohol abuse: Assessment and plan: Discussed goal of sobriety, offer treatment options as we approach discharge. Subjective Subjective Patient reports: no new complaints and voiding w/o difficulty; denies diarrhea, nausea, vomiting, shortness of breath or fever Interval history since last seen: She still feels exhausted, but not worse. She was a little hungry and ate some this morning. She hasn't noted any bleeding, just bruising. She states her last alcohol was over a week ago. She denies taking any new medications/supplements or any tylenol recently. Exam Narrative Exam Narrative: GEN: Sleepy but oriented x 4, though confused as to exact date. Speech slow but coherent. No acute distress at rest. HEENT: Head atraumatic. Conjunctiva clear, no icterus. PEERL, EOMI. no rhinorrhea. MMM, OP benign. Neck is supple with no masses or lymphadenopathy, trachea midline LUNGS: CTAB with normal effort CV: RRR with no murmurs, gallops, or rubs. ABD: active bowel sounds, soft, softly distended, slight fluid wave, not tense, no masses EXT: no cyanosis, clubbing. Diffuse 1-2+ edema of LE. NEURO: CN 2-12 grossly intact. Normal movement of 4 extremities. Normal speech and coordination. mild asterxis with hands extended SKIN: Jaundiced. No rashes or open wounds. PSYCH: normal mood and affect, thought process intact, no hallucinations Objective Last Vital Signs Temp 37.3 C 10/24/24 02:15 Pulse 159 H 10/24/24 08:01 Resp 30 H 10/24/24 08:01 BP 128/73 10/24/24 08:01 Pulse Ox 96 10/24/24 07:04 Laboratory Results - last 24 hr 10/23/24 10/23/24 10/23/24 19:43 19:54 21:15 WBC 15.88 H RBC 2.07 L Hgb 7.8 L Hct 21.6 L MCV 104 H MCH 37.7 H MCHC 36.1 H RDW 15.0 H Plt Count 138 MPV 10.0 Immature Gran % 0.6 Neutrophils % 81.7 Lymphocytes % 7.7 Monocytes % 9.1 Eosinophils % 0.6 Basophils % 0.3 Nucleated RBC % 0.0 Absolute Neutrophils 12.97 H Absolute Lymphocytes 1.22 Absolute Monocytes 1.45 H Absolute Eosinophils 0.10 Absolute Basophils 0.05 RBC Morphology Normal PT 28.9 H INR 3.1 H Sodium 123 L* Potassium 2.7 L* Chloride 89 L Carbon Dioxide 19.6 L Anion Gap 14.4 H BUN 9 Creatinine 1.5 H Est GFR (CKD-EPI 2020) 46.32 Glucose 97 Calcium 8.0 L Magnesium 1.5 L Total Bilirubin 31.7 H* Conjugated Bilirubin 22.4 H AST 294 H ALT 73 H Alkaline Phosphatase 148 H Ammonia 40 H Troponin I 15 17 NT-Pro-B Natriuret Pep 1010 H Total Protein 6.9 Albumin 1.9 L Lipase 150 H Vitamin B12 Folate Acetaminophen Ethyl Alcohol 3.9 Add-On Test Request DONE ABO/Rh B Negative Blood Type Recheck Antibody Screen NEGATIVE Crossmatch See Detail 10/23/24 10/24/24 10/24/24 22:39 07:50 09:15 WBC 13.93 H RBC 1.77 L Hgb 6.6 L* Hct 18.5 L* MCV 105 H MCH 37.3 H MCHC 35.7 RDW 15.6 H Plt Count 98 L MPV 9.9 Immature Gran % Neutrophils % Lymphocytes % Monocytes % Eosinophils % Basophils % Nucleated RBC % Absolute Neutrophils Absolute Lymphocytes Absolute Monocytes Absolute Eosinophils Absolute Basophils RBC Morphology PT 28.6 H INR 3.1 H Sodium 123 L* Potassium 2.6 L* Chloride 91 L Carbon Dioxide 20.5 L Anion Gap 11.5 H BUN 12 Creatinine 1.3 H Est GFR (CKD-EPI 2020) 55.00 Glucose 87 Calcium 7.6 L Magnesium 2.2 Total Bilirubin 28.5 H* Conjugated Bilirubin AST 235 H ALT 64 H Alkaline Phosphatase 128 H Ammonia Troponin I Cancelled NT-Pro-B Natriuret Pep Total Protein 5.7 L Albumin 1.6 L Lipase Vitamin B12 > 2000 H Folate 2.2 L Acetaminophen < 2 Ethyl Alcohol Add-On Test Request DONE ABO/Rh Blood Type Recheck B Negative Antibody Screen Crossmatch Time Spent with Patient Time Spent with Patient: >50 minutes Time was spent: preparing to see the patient(eg.review tests), obtaining and/or reviewing separately otained hiistory, ordering medications,tests, procedures, referring, communicating with other health manager long term care, indepentently interpreting results, counseling the patient and care coordination
[2024-10-24] MEDS: POTASSIUM CHLORIDE 20 MEQ/100 ML BAG 50 MEQ IV_INF (12:30)
[2024-10-24] MEDS: methylPREDNISolone 4 MG TAB 32 MG PO (12:30)
[2024-10-24] MEDS: Enoxaparin 40 MG/0.4 ML SYR SC (14:42)
[2024-10-24] MEDS: ALBUMIN HUMAN 25 GM/100 ML BTL IVPB ×4 (14:42→16:28)
[2024-10-24] MEDS: Potassium Chloride 20 MEQ TABCR 40 MEQ PO ×2 (14:42→20:00)
[2024-10-24] MEDS: Thiamine 100 MG TAB PO (14:44)
[2024-10-24] MEDS: Normal Saline 250 ML 30 ML (16:19)
[2024-10-24 18:46] LABS: Sodium, Urine 4 mmol/L
[2024-10-24 18:53] LABS: Clarity Clear (Clear)
[2024-10-24 18:55] LABS: Bacteria Rare HPF (Negative); Epithelial Cells Rare HPF (Negative)
[2024-10-24 18:56] LABS: C & S Indicated? No; Casts 0-2 Hyaline LPF (Negative); Crystals Other HPF (Negative); Mucus Negative (Negative)
[2024-10-24 19:32] LABS: HGB 6.7 g/dL (11.2-15.7)
[2024-10-24 19:33] LABS: HCT 19.2 % (36.0-46.0)
[2024-10-24 19:41] LABS: Anion Gap 11.6 mmol/L (3-11); BUN 13 mg/dL (7-18); CO2 19.4 mmol/L (21.0-32.0); CREATININE 1.4 mg/dL (0.55-1.02); Calcium 8.3 mg/dL (8.5-10.1); Chloride 92 mmol/L (98-107); Estimated GFR 50.32 (mL/min/1.73m2); Glucose 151 mg/dL (74-106); Potassium 3.1 mmol/L (3.5-5.1)
[2024-10-24 19:42] LABS: Sodium 123 mmol/L (136-145)
[2024-10-25] VITALS (52 sets, daily range): BP systolic 113–160; BP diastolic 61–100; PULSE 88–112; RESP 16–40; TEMP 37.1–37.8; O2SAT 86–96
[2024-10-25 06:40] LABS: MCV 103 fL (80-95); MPV 10.1 fL (8.0-11.0); RBC 1.84 10^6/uL (3.93-5.22); RDW 17.3 % (11.7-14.6); RDW-SD 64.1 fL; WBC 14.02 10^3/uL (4.4-10.8)
[2024-10-25 06:52] LABS: Iron 64 ug/dL (50-170); Total Iron Binding Capacity 52 ug/dL (250-450); Transferrin Sat 123 % (15-50)
[2024-10-25 07:01] LABS: ALT 58 U/L (14-59); AST 195 U/L (15-37); Albumin 2.6 g/dL (3.4-5.0); Alkaline Phosphatase 130 U/L (46-116); Anion Gap 12.4 mmol/L (3-11); BUN 14 mg/dL (7-18); CO2 21.6 mmol/L (21.0-32.0); CREATININE 1.2 mg/dL (0.55-1.02); Calcium 8.2 mg/dL (8.5-10.1); Chloride 94 mmol/L (98-107); Estimated GFR 60.54 (mL/min/1.73m2); Glucose 133 mg/dL (74-106); HCT 18.9 % (36.0-46.0); HGB 6.8 g/dL (11.2-15.7); Magnesium 2.4 mg/dL (1.8-2.4); Potassium 3.1 mmol/L (3.5-5.1); Sodium 128 mmol/L (136-145)
[2024-10-25 07:02] LABS: Platelet Count 91 10^3/uL (130-400)
[2024-10-25 07:05] LABS: INR 3.1 (0.9-1.1); Prothrombin Time 28.6 sec (9.1-11.1)
[2024-10-25 07:08] LABS: Bilirubin, Total 34.8 mg/dL (0.2-1.0)
[2024-10-25 07:14] LABS: Total Protein 6.4 g/dL (6.4-8.2)
[2024-10-25] MEDS: methylPREDNISolone 4 MG TAB 32 MG PO (07:58)
[2024-10-25] MEDS: Potassium Chloride 20 MEQ TABCR 40 MEQ PO ×2 (07:59→19:39)
[2024-10-25] MEDS: Thiamine 100 MG TAB PO (07:59)
[2024-10-25] MEDS: Normal Saline Flush 10 ML SYR IVP ×6 (08:03→22:51)
--- NOTE | 2024-10-25 08:40 | PDOC.CMPRO ---
Date of service: 10/25/24 Time of Service: 08:40 Care Management Progress Note Progress Note Text Progress Note Text: Sandi was awake and sitting in a recliner when CM met with her. She presents very similar to when this healthcare representative met with her yesterday. Her skin is jaundiced and she looks ill. She is pleasant, seems to enjoy having conversation, somewhat confused and was able to correct herself when she spoke out of context. Dr. Maynard joined the conversation and Sandi spoke openly about her history with alcohol and mentioned that she had a 3 month period of sobriety about [address]. [address] Maynard, Sandi's case was reviewed with [facility] and unfortunately she needs to be sober for 90 days before she can be considered for a transplant. A Palliative consult is planned for this afternoon to go over her goals of care in greater detail and provide her an opportunity to designate a HCA, if she wishes. It is important to note that Sandi has remained constant in her position that she does not want her mother or other family members involved in her healthcare, nor does she want them to visit. Family members have been calling and Sandi's wishes are being followed; the only person she wants to visit is her significant other Arun,and he has been present and on her HIPAA. Discharge Potential Discharge Needs: PT Evaluation and PCP F/U Appt Anticipated Barriers to Discharge: None Identified Patient/Family Education Needs: Review discharge instructions, discuss Ask Me Three Plan: Sandi is being closely monitored and treated in the ICU; she is critically ill and her prognosis is poor especially without a transplant, per hospitalist. Palliative is following her goals of care. When appropriate, Sandi would be interested in meeting with a sobriety motor coach tour operator from [facility] [place]. CM will follow and support pt during this difficult time and will continue to offer support with her discharge plan of care when better known. Social Determinants of Health Screening Will the Patient Participate in the Screening?: Unable to obtain
[2024-10-25] MEDS: Lactulose 20 GM/30 ML CUP PO ×2 (08:42→19:39)
[2024-10-25] MEDS: POTASSIUM CHLORIDE/0.9% NACL 1,000 ML 80 MEQ IV (08:49)
--- NOTE | 2024-10-25 08:58 | W.PM.PROGNOT ---
Date of Service Date of service: 10/25/24 Time of Service: 08:58 Assessment and Plan Assessment and plan (1) Acute liver failure: Status: Acute Assessment and plan: This is acute on chronic liver failure with elevated bili/INR and some enceophalopathy and organ damage with MAO. Fortunately she has been hemodynamically stable without severe systemic inflammation. Case reviewed with Dr. Majano at [facility] GI on admission and 10/24. Case reviewed 10/25 with [facility] transplant hepatology. She is not a candidate for transplant as she was drinking despite known liver disease Overall some slight improvement in GFR and sodium is encouraging, but prognosis remains challenging Na-MELD - 38 on admission (65% mortality in 90 days) Maddrey's Discriminant Function - 113 Poor prognosis, started methylprednisolone as below, though consider stopping if signs of worsening infection per GI. -Stopped diuresis given concern for HRS -Consulted surgery to consider paracentesis w/ fluid analysis, large volume not needed. -Echo when available. -Started IV CTX for possible SBP w/ AMS, continue unless we can get a paracentesis that is negative. -GI agrees with albumin infision x 2 days given some degree of hepatorenal syndrome, give day #2 today. -mild/moderate encephalopathy, some improvement today, continue lactulose. -Not a transplant candidate as above (2) Acute alcoholic hepatitis: Status: Acute Assessment and plan: See above, on steroids Monitor response, continue x 28 days if responding per Lille score at day 7 Start PPI for bleeding prophylaxis (3) Acute hyponatremia: Status: Acute Assessment and plan: Associated with decompenated cirrhosis. Treating as above, stopping renal toxins, giving albumin, fluid restrict. Will stop IV saline as giving blood and albumin again today Some improvement this morning is encouraging. (4) Hypokalemia: Status: Acute Assessment and plan: -Additional repletion today orally -Mg normalized (5) Leukocytosis: Status: Acute Assessment and plan: This maybe reactive considering her alcoholic liver cirrhosis. Concern for SBP w/ her ER admission for AMS. -Obtained BCx x2 -Obtained UCx -CT C/A/P without clear source of infection x possible lung infiltrate. Given mild hypoxia now will cover adding doxycycline to ceftriaxone. -Discussed paracentesis w/ fluid analysis, Amanda prefers to defer for today. -Started IV ABX for SBP as above, if worsening broaden this. (6) Macrocytic anemia: Status: Acute Assessment and plan: - Folic Acid and B12 okay, iron not low. - No signs of active bleed, but high risk for bleeding, as well as bone marrow suppression and gastritis - Transfused x 1 unit 10/24 and again 10/25 - She may be hemolyzing per GI consult, which would make sense with bili increasing. (7) Hepatorenal syndrome: Status: Acute Assessment and plan: as above, Cr down slightly this am (8) Acute hepatic encephalopathy: Status: Acute Assessment and plan: as above (9) Alcohol abuse: Assessment and plan: Discussed goal of sobriety, offer treatment options as we approach discharge. She has had a history of medical management with naltrexone, baclofen, but options limited with hepatic failure. Will discuss with family, ask for palliative help. Subjective Subjective Patient reports: no new complaints, tolerating a regular diet and voiding w/o difficulty; denies blood in stool, nausea or vomiting Interval history since last seen: 24 hr: s/p transfusion 1 unit PRBC s/p 100g albumin infusion x 1, prophylactic enoxaparin given after discussion with GI at [facility] started NS at 100ml/hr overnight She feels okay. No pain. She is feeling a little bit short of breath this morning RN just gave her 0.5L oxygen which helped. No cough, doesn't feel feverish. She did have a small amount of vaginal bleeding. No rectal bleed or melena. She denies confusion. Exam Narrative Exam Narrative: GEN: Alert and oriented x 4, Speech more fluid but still some word finding difficulty/confusion. No acute distress at rest. HEENT: Icteric. MMM LUNGS: CTAB with normal effort, no wheeze or rales CV: RRR with no murmurs, gallops, or rubs. ABD: active bowel sounds, soft, softly distended, very slight fluid wave, not tense, no masses EXT: no cyanosis, clubbing. Diffuse 1-2+ pitting edema of LE. NEURO: CN 2-12 grossly intact. Normal movement of 4 extremities. Normal speech and coordination. more subtle asterxis with hands extended SKIN: Jaundiced. No rashes or open wounds. PSYCH: normal mood and affect, thought process intact, no hallucinations Objective Last Vital Signs Temp 37.6 C H 10/25/24 08:45 Pulse 95 H 10/25/24 08:45 Resp 16 10/25/24 08:45 BP 130/73 10/25/24 08:45 Pulse Ox 91 L 10/25/24 08:45 Laboratory Results - last 24 hr 10/23/24 10/24/24 10/24/24 19:43 07:50 09:15 WBC 13.93 H RBC 1.77 L Hgb 6.6 L* Hct 18.5 L* MCV 105 H MCH 37.3 H MCHC 35.7 RDW 15.6 H Plt Count 98 L MPV 9.9 PT 28.6 H INR 3.1 H Sodium 123 L* Potassium 2.6 L* Chloride 91 L Carbon Dioxide 20.5 L Anion Gap 11.5 H BUN 12 Creatinine 1.3 H Est GFR (CKD-EPI 2020) 55.00 Glucose 87 Calcium 7.6 L Magnesium 2.2 Iron TIBC Transferrin % Sat Total Bilirubin 28.5 H* AST 235 H ALT 64 H Alkaline Phosphatase 128 H Total Protein 5.7 L Albumin 1.6 L Vitamin B12 > 2000 H Folate 2.2 L Urine Color Urine Clarity Urine pH Ur Specific [place] Urine Protein Urine Ketones Urine Blood Urine Nitrite Urine Bilirubin Urine Urobilinogen Ur Leukocyte Esterase Urine RBC Urine WBC Ur Epithelial Cells Urine Crystals Urine Bacteria Urine Casts Urine Mucus Ur Culture Indicated? Ur Random Sodium Urine Glucose Acetaminophen < 2 Add-On Test Request DONE ABO/Rh B Negative Blood Type Recheck B Negative Antibody Screen NEGATIVE Crossmatch See Detail 10/24/24 10/24/24 10/25/24 18:10 19:20 06:00 WBC 14.02 H RBC 1.84 L Hgb 6.7 L* 6.8 L* Hct 19.2 L* 18.9 L* MCV 103 H MCH 37.0 H MCHC 36.0 RDW 17.3 H Plt Count 91 L MPV 10.1 PT 28.6 H INR 3.1 H Sodium 123 L* 128 L Potassium 3.1 L 3.1 L Chloride 92 L 94 L Carbon Dioxide 19.4 L 21.6 Anion Gap 11.6 H 12.4 H BUN 13 14 Creatinine 1.4 H 1.2 H Est GFR (CKD-EPI 2020) 50.32 60.54 Glucose 151 H 133 H Calcium 8.3 L 8.2 L Magnesium 2.4 Iron 64 TIBC 52 L Transferrin % Sat 123 H Total Bilirubin 34.8 H* AST 195 H ALT 58 Alkaline Phosphatase 130 H Total Protein 6.4 Albumin 2.6 L Vitamin B12 Folate Urine Color Dark Yellow Urine Clarity Clear Urine pH Ur Specific [place] 1.030 H Urine Protein Urine Ketones Urine Blood Urine Nitrite Urine Bilirubin Urine Urobilinogen Ur Leukocyte Esterase Urine RBC 3-5 H Urine WBC 3-5 Ur Epithelial Cells Rare Urine Crystals Other Urine Bacteria Rare Urine Casts 0-2 Hyaline Urine Mucus Negative Ur Culture Indicated? No Ur Random Sodium 4 Urine Glucose Acetaminophen Add-On Test Request ABO/Rh Blood Type Recheck Antibody Screen Crossmatch Time Spent with Patient Time Spent with Patient: >50 minutes Time was spent: preparing to see the patient(eg.review tests), obtaining and/or reviewing separately otained hiistory, ordering medications,tests, procedures, referring, communicating with other health client care coordinator, indepentently interpreting results, counseling the patient and care coordination
[2024-10-25] MEDS: Acetaminophen 325 MG TAB 650 MG PO (09:13)
--- NOTE | 2024-10-25 09:35 | SCONE_ITS ---
Date of service: 10/25/24 Time of Service: 09:35 Assessment and Plan Assessment and plan (1) SBP (spontaneous bacterial peritonitis): Status: Acute Assessment and plan: 33-year-old woman with history of cirrhosis. Does have some ascites on imaging though not an impressive amount. She has no subjective abdominal pain. She seems lucid enough and denies ever having had abdominal pain. Her abdominal exam is completely benign and soft. There is no tenderness. When concerned about the possibility of SBP clinically, diagnostic paracentesis should be performed in the emergency department, prior to initiating antibiotics. I do not see that that was done. The diagnostic benefit at this point would be probably meaningless at best. Considering patient's clinical presentation and history, I do not think SBP is on the differential diagnosis list and I do not think there is any indication for diagnostic paracentesis at this time. Surgery signing off, call us back if her clinical status changes and she develops abdominal pain. History of Present Illness Narrative: Asked to see the patient to consider diagnostic paracentesis to rule out SBP. At the bedside the patient denies abdominal pain. She denies ever having abdominal pain. She denies having abdominal pain at home. She has no abdominal pain now at the bedside. She says the reason she came in is because she started turning yellow. PFSH All Active Problems (Updated 10/25/24 @ 19:03 by Chilango Patel MD) SBP (spontaneous bacterial peritonitis) (Acute) Palliative care encounter (Acute) ACP (advance care planning) (Acute) Alcohol use disorder (Acute) Hepatorenal syndrome (Acute) Acute alcoholic hepatitis (Acute) Alcoholic cirrhosis (Acute) Elevated brain natriuretic peptide (BNP) level (Acute) Macrocytic anemia (Acute) Leukocytosis (Acute) Jaundice (Acute) Hypomagnesemia (Acute) Hypokalemia (Acute) Acute hyponatremia (Acute) Anemia (Chronic) Acute hepatic encephalopathy (Acute) Acute liver failure (Acute) Medical History Anemia Muscle weakness Sensory polyneuropathy Alcohol abuse Mixed anxiety and depressive disorder Gastritis Surgical History History of esophagogastroduodenoscopy (EGD) History of liver biopsy Family History Mother Thyroid disorder Social History Smoking/Tobacco Use Status: Never Smoking risk assessment performed?: Yes Alcohol Intake: current Alcohol Intake frequency: a few times a week Alcohol type: beer Drug use: Occasionally Substance use type: marijuana Communication Needs: Corrective Lenses Education Level: master's degree Pets and animals: Yes Pets and animals: cat(s) What type of physical activity do you participate in: occasional exercise Working smoke detector in home: Yes Carbon monox detector in home: Yes Do you feel safe in your relationship?: Yes Exam Narrative Exam Narrative: Gen: Non-toxic, comfortable and interactive. Scleral icterus is visible as it is full?body jaundice. Morbidly obese. Neuro: Alert and oriented x3 Psych: Cooperative mood and affect. Seemingly good insight and understanding into condition. Chest: Non-labored breathing, no wheezing, no visible shortness of breath. Heart: Regular Abdomen: Soft, obese, no distention, nontender. Results Last Vital Signs Temp 99.7 F H 10/25/24 08:45 Pulse 95 H 10/25/24 08:45 Resp 16 10/25/24 08:45 BP 130/73 10/25/24 08:45 Pulse Ox 91 L 10/25/24 08:45 Labs 10/25/24 16:45 10/25/24 06:00 Labs: Laboratory Results - last 24 hr 10/23/24 10/24/24 10/24/24 19:43 07:50 09:15 WBC 13.93 H RBC 1.77 L Hgb 6.6 L* Hct 18.5 L* MCV 105 H MCH 37.3 H MCHC 35.7 RDW 15.6 H Plt Count 98 L MPV 9.9 PT 28.6 H INR 3.1 H Sodium 123 L* Potassium 2.6 L* Chloride 91 L Carbon Dioxide 20.5 L Anion Gap 11.5 H BUN 12 Creatinine 1.3 H Est GFR (CKD-EPI 2020) 55.00 Glucose 87 Calcium 7.6 L Magnesium 2.2 Iron TIBC Transferrin % Sat Total Bilirubin 28.5 H* AST 235 H ALT 64 H Alkaline Phosphatase 128 H Total Protein 5.7 L Albumin 1.6 L Vitamin B12 > 2000 H Folate 2.2 L Urine Color Urine Clarity Urine pH Ur Specific [place] Urine Protein Urine Ketones Urine Blood Urine Nitrite Urine Bilirubin Urine Urobilinogen Ur Leukocyte Esterase Urine RBC Urine WBC Ur Epithelial Cells Urine Crystals Urine Bacteria Urine Casts Urine Mucus Ur Culture Indicated? Ur Random Sodium Urine Glucose Acetaminophen < 2 Add-On Test Request DONE ABO/Rh B Negative Blood Type Recheck B Negative Antibody Screen NEGATIVE Crossmatch See Detail 10/24/24 10/24/24 10/25/24 18:10 19:20 06:00 WBC 14.02 H RBC 1.84 L Hgb 6.7 L* 6.8 L* Hct 19.2 L* 18.9 L* MCV 103 H MCH 37.0 H MCHC 36.0 RDW 17.3 H Plt Count 91 L MPV 10.1 PT 28.6 H INR 3.1 H Sodium 123 L* 128 L Potassium 3.1 L 3.1 L Chloride 92 L 94 L Carbon Dioxide 19.4 L 21.6 Anion Gap 11.6 H 12.4 H BUN 13 14 Creatinine 1.4 H 1.2 H Est GFR (CKD-EPI 2020) 50.32 60.54 Glucose 151 H 133 H Calcium 8.3 L 8.2 L Magnesium 2.4 Iron 64 TIBC 52 L Transferrin % Sat 123 H Total Bilirubin 34.8 H* AST 195 H ALT 58 Alkaline Phosphatase 130 H Total Protein 6.4 Albumin 2.6 L Vitamin B12 Folate Urine Color Dark Yellow Urine Clarity Clear Urine pH Ur Specific [place] 1.030 H Urine Protein Urine Ketones Urine Blood Urine Nitrite Urine Bilirubin Urine Urobilinogen Ur Leukocyte Esterase Urine RBC 3-5 H Urine WBC 3-5 Ur Epithelial Cells Rare Urine Crystals Other Urine Bacteria Rare Urine Casts 0-2 Hyaline Urine Mucus Negative Ur Culture Indicated? No Ur Random Sodium 4 Urine Glucose Acetaminophen Add-On Test Request ABO/Rh Blood Type Recheck Antibody Screen Crossmatch
[2024-10-25] MEDS: Pantoprazole 40 MG VIAL IVP (10:39)
[2024-10-25] MEDS: ALBUMIN HUMAN 25 GM/100 ML BTL IVPB ×4 (10:40→12:52)
--- NOTE | 2024-10-25 10:47 | W.NUTRFU ---
Date of service: 10/25/24 Time of Service: 10:47 Nutrition Note NOTE: 33yo female being treated for acute liver failure d/t acute alcoholic hepatitis, hepatorenal syndrome with a hx of etoh abuse. Pt with fair intake on regular diet. Complicated lab picture - today: Low sodiium (128), potassium (3.1), chloride (94). Hig Cratinine 1.2. Total protein lab wnl, albumin at 2.6 after multiple transfusions. Folate low yesterday at 2.2. Nutrition dx: metabolic dysfunction and nutrient deficiencies (folate) related to etoh hepatitis from etoh consumption. Intervention: recommend folic acid supplementation to help correct deficiency. Continue regular diet. recommend etoh cessation Time Spent in Nutritional Counseling and Treatment: 0
--- NOTE | 2024-10-25 10:51 | PHA.REVIEW2 ---
Pharmacy Admission Review Admission Clinical Review Admission Pharmacy Review: Hepatorenal syndrome (Acute) Acute alcoholic hepatitis (Acute) Alcoholic cirrhosis (Acute) Elevated brain natriuretic peptide (BNP) level (Acute) Macrocytic anemia (Acute) Leukocytosis (Acute) Hypomagnesemia (Acute) Hypokalemia (Acute) Acute hyponatremia (Acute) Acute hepatic encephalopathy (Acute) Acute liver failure (Acute) No Known Allergies Allergy (Unverified 12/05/21 11:16) Resuscitation Status Full Code Height 5 ft 7 in Weight 136.4 kg Pharmacy Admission Review Renal Dosing Renal Dosing: BUN 14 mg/dL (7-18) 10/25/24 06:00 Creatinine 1.2 mg/dL (0.55-1.02) H 10/25/24 06:00 Medications needing adjustments: Reviewed (CrCl 94.52 mL/min, SCr decreased from 1.4) List of meds needing interventions: Current medications are okay Anticoagulation Anticoagulation: Hgb 6.8 g/dL (11.2-15.7) L* 6.7 g/dL (11.2-15.7) L* 6.6 g/dL (11.2-15.7) L* 7.8 g/dL (11.2-15.7) L 10/25/24 06:00 10/24/24 19:20 10/24/24 07:50 10/23/24 19:43 Hct 18.9 % (36.0-46.0) L* 19.2 % (36.0-46.0) L* 18.5 % (36.0-46.0) L* 21.6 % (36.0-46.0) L 10/25/24 06:00 10/24/24 19:20 10/24/24 07:50 10/23/24 19:43 Plt Count 91 10^3/uL (130-400) L 10/25/24 06:00 INR 3.1 (0.9-1.1) H 10/25/24 06:00 Creatinine 1.2 mg/dL (0.55-1.02) H 10/25/24 06:00 DVT Prophylaxis: Reviewed (provider aware of PLT/INR/Hgb - still wants ppx per hepatology recommendations. ) Medications: Enoxaparin (40mg daily) Relevant Labs Relevant Labs: Sodium 128 mmol/L (136-145) L 10/25/24 06:00 Potassium 3.1 mmol/L (3.5-5.1) L 10/25/24 06:00 Chloride 94 mmol/L (98-107) L 10/25/24 06:00 Magnesium 2.4 mg/dL (1.8-2.4) 10/25/24 06:00 Total Bilirubin 34.8 mg/dL (0.2-1.0) H* 10/25/24 06:00 28.5 mg/dL (0.2-1.0) H* 10/24/24 07:50 31.7 mg/dL (0.2-1.0) H* 10/23/24 19:43 AST 195 U/L (15-37) H 10/25/24 06:00 235 U/L (15-37) H 10/24/24 07:50 294 U/L (15-37) H 10/23/24 19:43 ALT 58 U/L (14-59) 10/25/24 06:00 64 U/L (14-59) H 10/24/24 07:50 73 U/L (14-59) H 10/23/24 19:43 Electrolytes, C-Reactive P, ESR: Reviewed (Na increased from 123, K increased from 2.7, AST/ALT both decreased this morning) Cardiac Review Cardiac Review: Troponin I 17 10/23/24 21:15 NT-Pro-B Natriuret Pep 1010 pg/mL (<300) H 10/23/24 19:43 Blood Pressure : Heart Rate 148/81 : 91 1020 Blood Pressure : Heart Rate 148/81 : 98 1015 Blood Pressure : Heart Rate 126/68 : 94 0952 Blood Pressure : Heart Rate 126/68 : 98 0945 Blood Pressure : Heart Rate 133/70 : 96 0930 Blood Pressure : Heart Rate 133/70 : 92 0927 Blood Pressure : Heart Rate 130/73 : 95 0845 BP, HR, EF%: Reviewed QTc Review QTc: Reviewed (480 from 10/23/24) IV to PO Switch IV Medications: Reviewed (albumin, ceftriaxone and pantoprazole) Home Meds Home Med List reviewed: Intervened Relevent Home Meds Not ordered & why?: baclofen, citalopram, gabapentin, ibuprofen (PRN), multivitamin, naltrexone, control pill Reached out to provider, waiting to hear back Current Meds Current Medication Order Review: Reviewed Pharmacy Antibiotic Review Relevant Labs: WBC 14.02 10^3/uL (4.4-10.8) H 10/25/24 06:00 Temperature 37.6 C 1015 Temperature 37.2 C 0945 Temperature 37.8 C 0930 Temperature 37.6 C 0845 Temperature 37.8 C 0820 Temperature 37.8 C 0629 Temperature 37.8 C 0020 Pharmacy Antibiotic Activity: C/S review and Reviewed, no change Comments: Patient is on ceftriaxone, day 2, for possible SBP per H+P. WBC increased from 13.93 and elevated temperature for most of the morning. Blood cultures pending.
[2024-10-25 11:03] LABS: Hepatitis A Antibody IgM Negative (Negative); Hepatitis B Core Antibody Negative (Negative); Hepatitis B surface Ag Negative (Negative); Hepatitis C Ab w Rflx HCV PCR Negative (Negative)
[2024-10-25] MEDS: Folic Acid 1 MG TAB PO (11:26)
[2024-10-25] MEDS: Enoxaparin 40 MG/0.4 ML SYR SC (12:52)
--- NOTE | 2024-10-25 16:52 | PCNE_ITS ---
Date of service: 10/25/24 Time of Service: 16:00 History of Present Illness Narrative: Ms. Hudson is a 33 y/o F currently in ICU 2/2 acute liver failure; PMHx sig for AUD w/cirrhosis (portal HTN, ascites, encephalopathy), anxiety and depression; present at end of visit partner Arun Hospital Course: Becca presented to [facility] ED on 10/24 w/confusion, jaundic, work up consistent w/alcohol related cirrhosis w/ascites, hepatomegaly, portal HTN; NaMELD 38, indicating a 65% chance mortality in 90d, not candidate for transplant ([facility] and ), started on methylprednisolone and lactulose; encephalopathy improved w/lactulose, received 1 unit pRBC and albumin infusion w/good effect; concern w/HRS; continues diuresis for fluid build up, now w/O2 requirement of 2L, 1L QHS increased after desating to 84% per staff: clearest she has been today; 2 bowels today loose w/some BRB, there is skin breakdown in buttock which is open and may be contributing, denying pain; fluid restriction of 1200L qd, doing well w/use of oral swabs PRN; appetite appropriate, ate 50% breakfast, 75% lunch - significant concerns for family involvement; Becca has been clear w/all staff that she trusts Arun to make health care decisions and trusts him, she is not interested in having her mother or other members of her family knowing her current health status or being involved in medical decision making. they have been calling in w/concerns, see CM notes. EAP plan in place for potential visitation Becca just received status update from hospitalist at time of visit; during this visit hospitalist reviewed worst case scenario of sig liver disease, indicating end stage, 50% chance she could w/in 3 mos. Becca does not want to think in terms of worst case and would like to focus on the positive, the positive being that her liver could get better, she could be eligible for transplant and continue living. - she confirms her current preference is to have complete cessation of alcohol, including s/p this admission, w/goals of no alcohol use for 90 days, w/goal of potential eligibility to be placed on transplant list. she has previously agreed to being connected to [facility] unit or other resources. She is scared. She would prefer to be home with her boyfriend, 2 cats and tortoise in [place]. She wants to remain positive at this time, and hope for the best Assessment and Plan Assessment and plan (1) Acute liver failure: Status: Acute Assessment and plan: acute on chronic; hemodynamically stable without severe systemic inflammation - ceftriaxone for potential SBP; lactulose, methylprednisolone; diuretics w/caution d/t HRS concerns; albumin infusions; PPI - HRS, encephalopathy, ascites; surgical consulted - not candidate for liver transplant (/[facility] both consulted) unless 90d w/o alcohol (2) Acute alcoholic hepatitis: Status: Acute Assessment and plan: as above (3) Hepatorenal syndrome: Status: Acute Assessment and plan: as above some improvement continue to monitor (4) Jaundice: Status: Acute (5) Acute hepatic encephalopathy: Status: Acute Assessment and plan: improved w/lactulose clearest since admission today (6) Muscle weakness: (7) Mixed anxiety and depressive disorder: Assessment and plan: recommend Ativan 1mg BID PRN ordered, not reviewed with patient - anticipate increased anxiety after today's difficult conversation - continue to monitor (8) Alcohol use disorder: Status: Acute Assessment and plan: previously agreed to connection w/[facility] goals of maintained sobriety w/goal of being eligible for transplant monitor for signs of withdrawal (9) ACP (advance care planning): Status: Acute Assessment and plan: reviewed worst case scenario involves her dying acutely from liver failure; hospitalist reviewed need to consider this, get things in order, do things she's been putting off, etc; Becca's preference is to focus on the positive - for her positive involves liver getting better, staying alive; reviewed that it is unlikely her liver will get better, given the bigger clinical picture of what her labs/numbers are indicating, however getting better through lens of ongoing cessation of alcohol w/goal of stability/managing liver disease to get on transplant and this could lead to a full recovery in a best case scenario reviewed [place] laws regarding decision making capacity, who gets assigned HCA if none appointed, reviewed and completed HCA form, her boyfriend Arun listed as only HCA, mother Karlie Sams listed as do not consult; if Arun not available she would like a neutral republican assigned from the state - we began reviewing importance of Advanced Directive, at our next visit; she became overwhelmed. we will hold this for Friday spent 25m w/ACP (10) Palliative care encounter: Status: Acute Assessment and plan: PC will continue to follow Becca closely, plans for Friday f/ - review AD as appropriate, continue worst case/best case review Review of Systems Narrative: as per HPI PFSH All Active Problems (Updated 10/25/24 @ 17:11 by Jenelle Soto NP) Palliative care encounter (Acute) ACP (advance care planning) (Acute) Alcohol use disorder (Acute) Hepatorenal syndrome (Acute) Acute alcoholic hepatitis (Acute) Alcoholic cirrhosis (Acute) Elevated brain natriuretic peptide (BNP) level (Acute) Macrocytic anemia (Acute) Leukocytosis (Acute) Jaundice (Acute) Hypomagnesemia (Acute) Hypokalemia (Acute) Acute hyponatremia (Acute) Anemia (Chronic) Acute hepatic encephalopathy (Acute) Acute liver failure (Acute) Medical History Anemia Muscle weakness Sensory polyneuropathy Alcohol abuse Mixed anxiety and depressive disorder Gastritis Surgical History History of esophagogastroduodenoscopy (EGD) History of liver biopsy Family History Mother Thyroid disorder Social History Smoking/Tobacco Use Status: Never Smoking risk assessment performed?: Yes Alcohol Intake: current Alcohol Intake frequency: a few times a week Alcohol type: beer Drug use: Occasionally Substance use type: marijuana Communication Needs: Corrective Lenses Education Level: master's degree Pets and animals: Yes Pets and animals: cat(s) What type of physical activity do you participate in: occasional exercise Working smoke detector in home: Yes Carbon monox detector in home: Yes Do you feel safe in your relationship?: Yes Exam Narrative Exam Narrative: General: ill appearing 33 y/o F sitting in recliner in ICU bed, feet dependent HEENT: normocephalic, atraumatic, hearing grossly WNL Resp: w/anxiety becomes tachypnic w/dyspnea, recovers w/time; resp even and unlabored most of visit; cough, dry non productive, no audible wheeze; NC in place Skin: jaundice, predominately in face Psych: cooperative, calm, increased anxiety w/EOL conversations, recovers appropriately; impoverished, avoids worst case scenario conversations; insight/judgment limited Results Last Vital Signs Temp 99.3 F 10/25/24 13:15 Pulse 95 H 10/25/24 15:07 Resp 19 10/25/24 15:07 BP 138/100 H 10/25/24 15:07 Pulse Ox 91 L 10/25/24 15:07 Labs 10/25/24 06:00 10/25/24 06:00 Labs: Laboratory Results - last 24 hr 10/23/24 10/24/24 10/24/24 19:43 07:50 18:10 WBC RBC Hgb Hct MCV MCH MCHC RDW Plt Count MPV PT INR Sodium Potassium Chloride Carbon Dioxide Anion Gap BUN Creatinine Est GFR (CKD-EPI 2020) Glucose Calcium Magnesium Iron TIBC Transferrin % Sat Total Bilirubin AST ALT Alkaline Phosphatase Total Protein Albumin Urine Color Dark Yellow Urine Clarity Clear Urine pH Ur Specific [place] 1.030 H Urine Protein Urine Ketones Urine Blood Urine Nitrite Urine Bilirubin Urine Urobilinogen Ur Leukocyte Esterase Urine RBC 3-5 H Urine WBC 3-5 Ur Epithelial Cells Rare Urine Crystals Other Urine Bacteria Rare Urine Casts 0-2 Hyaline Urine Mucus Negative Ur Culture Indicated? No Ur Random Sodium 4 Urine Glucose Hepatitis A IgM Ab Negative Hep Bs Antigen Negative Hep B Core Total Ab Negative Hepatitis C Antibody Negative ABO/Rh B Negative Antibody Screen NEGATIVE Crossmatch See Detail 10/24/24 10/25/24 19:20 06:00 WBC 14.02 H RBC 1.84 L Hgb 6.7 L* 6.8 L* Hct 19.2 L* 18.9 L* MCV 103 H MCH 37.0 H MCHC 36.0 RDW 17.3 H Plt Count 91 L MPV 10.1 PT 28.6 H INR 3.1 H Sodium 123 L* 128 L Potassium 3.1 L 3.1 L Chloride 92 L 94 L Carbon Dioxide 19.4 L 21.6 Anion Gap 11.6 H 12.4 H BUN 13 14 Creatinine 1.4 H 1.2 H Est GFR (CKD-EPI 2020) 50.32 60.54 Glucose 151 H 133 H Calcium 8.3 L 8.2 L Magnesium 2.4 Iron 64 TIBC 52 L Transferrin % Sat 123 H Total Bilirubin 34.8 H* AST 195 H ALT 58 Alkaline Phosphatase 130 H Total Protein 6.4 Albumin 2.6 L Urine Color Urine Clarity Urine pH Ur Specific [place] Urine Protein Urine Ketones Urine Blood Urine Nitrite Urine Bilirubin Urine Urobilinogen Ur Leukocyte Esterase Urine RBC Urine WBC Ur Epithelial Cells Urine Crystals Urine Bacteria Urine Casts Urine Mucus Ur Culture Indicated? Ur Random Sodium Urine Glucose Hepatitis A IgM Ab Hep Bs Antigen Hep B Core Total Ab Hepatitis C Antibody ABO/Rh Antibody Screen Crossmatch Time Spent Time Spent with Patient Time Spent(min): 65
[2024-10-25] MEDS: Furosemide 40 MG/4 ML VIAL IVP ×2 (16:53→22:30)
[2024-10-25 16:55] LABS: HCT 23.4 % (36.0-46.0); HGB 8.2 g/dL (11.2-15.7)
[2024-10-25] MEDS: Doxycycline Hyclate 100 MG CAP PO (17:47)
--- NOTE | 2024-10-25 22:12 | W.EVENT ---
Date of service: 10/25/24 Time of Service: 21:50 Event Note: I was called to bedside this 33-year-old female patient because of worsening tachypnea and hypoxemia requiring increasing amounts of O2 supplementation. She was found to be tachypneic and mildly confused with hepatic encephalopathy and had worsened from her previous improvement earlier in the day. She did receive 2 days of albumin totaling 200 g of albumin with 1 unit of packed red blood cells and only 40 mg of IV Lasix after blood transfusion. Diuresis had been minimized because of hepatorenal syndrome but patient appeared fluid overloaded with coarse crackles (worse on the right than left. She did receive 40 mg of IV Lasix immediately while pending chest x-ray, and lab work ordered. She did appear to have pulmonary edema by chest x-ray with worsening right lung infiltrate but no fever. She did have increased WBC with persistent with her hemoglobin improved to 8 g/dL from 6 g/dL after transfusion during the day. She did have a positive lactate but negative MRSA screening swab with worsening hypokalemia and IV potassium 20 mg being given. She had a partial response of 700+ cc from her IV Lasix but persisted with worsening hypoxemia requiring 10 L of O2 per nasal cannula not tolerating mask. She would not tolerate BiPAP. He was given a second dose of Lasix 40 mg did respond with less tachypnea and tachycardia but oxygen needs continued to be 15 L/min per nasal cannula. Her antibiotic coverage was broadened with vancomycin but switching from ceftriaxone to Zosyn and continue with doxycycline but changed to IV. Blood pressures remain elevated to stable and patient was transferred back to ICU because of increased needs for monitoring with high flow O2 nasal cannula and patient being a full code wanting intubation if she fatigued. See labs and imaging reports. Assessment/plan: Patient has new onset hypoxic respiratory failure most likely secondary to pulmonary edema as result of albumin transfusion and attempting to minimize diuresis. We are still concerned about advancing hepatic renal syndrome and diuresis will be minimized with IV fluid resuscitation to be also minimized advancing oral intake. She was hypokalemic and this was repleted IV with oral therapy already ambulated. Follow-up lab and replete magnesium and potassium as needed. No scheduled diuresis for now. Continue Jorgensen catheter close monitoring of I&O. Patient's status is tenuous and I did discuss her case with her significant other, Arun Brian ([phone]) at 01:10 in the morning. I reassured him that we would call if she would have worsening but she was stable throughout the night. Time Spent with Patient Time spent in critical care(minutes): 60 Time Spent Included: Coordination of care, Chart review, Documenting critically ill care, Time at immediate bedside and Discussing Hx and/or treatment with family
[2024-10-25 22:31] LABS: BE (Venous) -2 mmol/L (-2-3); HCO3 (Venous) 23 mmol/L (23-28); O2 Sat (Venous) 93 %; TCO2 (Venous) 22 mmol/L (24-29); pCO2 (Venous) 37 mmHg (41-51); pH (Venous) 7.39 (7.31-7.41); pO2 (Venous) 66 mmHg
[2024-10-25 22:33] LABS: Lactate 2.2 mmol/L (<or=2.0)
--- NOTE | 2024-10-25 22:35 | DI.RAD_ITS ---
Exam(s) XR PORTABLE CHEST AP EXAM: XR PORTABLE CHEST AP CLINICAL HISTORY: Acute hypoxic respiratory failure, pneumonia TECHNIQUE: 2D digital imaging was performed. COMPARISON: CT CT CHEST/ABD/PEL W from 10/23/2024 FINDINGS: Multiple overlying monitoring leads. LUNGS: Large areas of consolidation in right lung. Areas of consolidation also noted in the on the l eft but to a lesser extent. Significant interval worsening from prior chest CT. No pleural abnormal ity seen. HEART: Normal size. AORTA: Normal diameter. BONES: Unremarkable for age. Soft tissues: Unremarkable. IMPRESSION: Bilateral pneumonia, right greater than left. DATA REPOSITORY: RADIATION DOSE DELIVERED:
[2024-10-25] MEDS: cefTRIAXone 2 GM/50 ML BAG IVPB (22:51)
[2024-10-25 22:59] LABS: ALT 66 U/L (14-59); AST 206 U/L (15-37); Albumin 3.3 g/dL (3.4-5.0); Anion Gap 10.2 mmol/L (3-11); BUN 14 mg/dL (7-18); CO2 23.8 mmol/L (21.0-32.0); CREATININE 1.2 mg/dL (0.55-1.02); Calcium 8.4 mg/dL (8.5-10.1); Chloride 97 mmol/L (98-107); Estimated GFR 60.54 (mL/min/1.73m2); Glucose 146 mg/dL (74-106); Sodium 131 mmol/L (136-145)
[2024-10-25 23:09] LABS: NT-proBNP 3416 pg/mL (<300)
[2024-10-25 23:12] LABS: Troponin I 78 ng/L (<or=51)
--- NOTE | 2024-10-25 23:14 | DI.VRAD_ITS ---
PROCEDURE INFORMATION: Exam: XR Chest Exam date and time: 10/25/2024 10:33 PM Age: 33 years old Clinical indication: Other: Acute hypoxic respiratory failure, pneumonia TECHNIQUE: Imaging protocol: Radiologic exam of the chest. Views: 1 view. COMPARISON: CT CHEST/ABD/PEL W 10/23/2024 8:36 PM FINDINGS: Lungs: Patchy right greater than left airspace opacity more so in a perihilar distribution. This appears worsened from comparison exam within limitations of differences in imaging technique. Pleural spaces: No visible pleural effusion. No pneumothorax. Heart/Mediastinum: Cardiomediastinal contours are mildly enlarged. Diaphragm: Mild asymmetric elevation of the right hemidiaphragm. Bones/joints: No acute osseous finding. IMPRESSION: Patchy [id number]-rxey-left airspace opacity. This appears worsened from comparison exam within limitations of differences in imaging technique. Correlate clinically for multifocal infection/pneumonia versus pulmonary edema versus other alveolar filling process. Dictated and Authenticated by: Damon Byers MD. Orderin Lanette Sahni MD
[2024-10-25 23:16] LABS: Bilirubin, Total 41.3 mg/dL (0.2-1.0)
[2024-10-25 23:20] LABS: Alkaline Phosphatase 149 U/L (46-116)
[2024-10-26] VITALS (30 sets, daily range): BP systolic 122–163; BP diastolic 61–117; PULSE 57–106; RESP 17–98; TEMP 37–37.6; O2SAT 84–100
[2024-10-26] MEDS: Furosemide 40 MG/4 ML VIAL IVP ×2 (00:33→15:58)
--- NOTE | 2024-10-26 01:22 | RESPIRATORY ---
Paged for pt's increased wob and increasing o2 needs. Pt is tachypniec and unable to tolerate oxymask. Placed on high flow nc 15L, Pt's sats in the mid 90's. Lungs sound wet, RN gave lasix and pt requested to sit up in a chair to help her wob. Pt was subsequently moved to the ICU for close monitoring. Pt would benefit from cpap but says she can not tolerate it. Will continue to monitor wob and o2 status.
[2024-10-26] MEDS: POTASSIUM CHLORIDE 20 MEQ/100 ML BAG 50 MEQ IV_INF ×3 (02:08→11:33)
[2024-10-26] MEDS: Normal Saline Flush 10 ML SYR IVP ×6 (02:09→20:58)
[2024-10-26 02:17] LABS: MRSA PCR Negative (Negative)
--- NOTE | 2024-10-26 02:31 | W.PC.ACHO ---
Registration Status: Primary Language: Preferred Language: ED Information & Data Chief Complaint GenMedical 10/23/24 19:56 Triage Note pt brought here by her 10/23/24 19:18 family. pt denying wanting treatment. severely jaundiced. denies being any pain or needing anything Medical / Surgical History (Last Reviewed 10/25/24 @ 17:07 by Jenelle Soto NP) Anemia Muscle weakness Sensory polyneuropathy Alcohol abuse Mixed anxiety and depressive disorder Gastritis (Last Reviewed 10/25/24 @ 17:07 by Jenelle Soto NP) History of esophagogastroduodenoscopy (EGD) History of liver biopsy Most Recent Vital Signs Temperature 37 C 10/26/24 01:42 Temperature Source Temporal Artery Scan 10/26/24 01:42 Pulse 98 H 10/25/24 22:52 Pulse 97 H 10/25/24 19:23 Respiratory Rate 26 H 10/25/24 23:46 Respiratory Effort Normal 10/24/24 02:15 Respiratory Depth Normal 10/24/24 02:15 Respiratory Pattern Normal 10/24/24 02:15 Blood Pressure 159/81 H 10/25/24 22:52 Blood Pressure Mean 110 10/25/24 19:23 Blood Pressure Position Supine 10/24/24 02:15 Pulse Oximetry 92 10/25/24 23:46 Oxygen Delivery Method High Flow Nasal Cannula 10/26/24 01:42 Oxygen Flow Rate 15 10/26/24 01:42 Fraction of Inspired Oxygen (FIO2) 96 10/25/24 11:25 Pain Level 0 10/25/24 21:33 Comment turned nasal cannula to 5L at this time 10/25/24 23:34 Comment Pt figets with and lays on O2 sensor, showing poor reading 10/25/24 00:16 Allergies No Known Allergies Allergy (Unverified 12/05/21 11:16) Precautions Isolation Standard precaution 10/23/24 19:23 Active Medications Generic Name Dose Route Start Last Admin Trade Name Freq PRN Reason Stop Dose Admin Acetaminophen 650 mg 10/25/24 08:56 10/25/24 09:13 Acetaminophen 325 Mg Tab PO 650 mg Q6H PRN PRN Administration Potassium Chloride 20 meq in 100 mls @ 50 mls/hr 10/26/24 02:00 10/26/24 02:08 IV_INF 10/26/24 03:59 50 mls/hr NOW ONE Administration Lactulose 20 gm 10/24/24 08:30 10/25/24 19:39 Lactulose 20 Gm/30 Ml Cup PO 20 gm BID SERGIO Administration Methylprednisolone 32 mg 10/24/24 08:30 10/25/24 07:58 Methylprednisolone 4 Mg Tab PO 32 mg DAILY SERGIO Administration Pantoprazole Sodium 40 mg 10/25/24 09:30 10/25/24 10:39 Pantoprazole 40 Mg Vial IVP 40 mg DAILY SERGIO Administration Potassium Chloride 40 meq 10/24/24 20:00 10/25/24 19:39 Potassium Chloride 20 Meq Tabcr PO 40 meq BID SERGIO Administration Sodium Chloride 0 ml 10/23/24 19:39 10/26/24 02:09 Normal Saline Flush 10 Ml Syr IVP 20 ml PRN PRN Administration Sodium Chloride 0 ml 10/23/24 20:00 10/25/24 19:40 Normal Saline Flush 10 Ml Syr IVP 40 ml BID SERGIO Administration Thiamine HCl 100 mg 10/25/24 08:30 10/25/24 07:59 Thiamine 100 Mg Tab PO 100 mg DAILY SERGIO Administration IV IV Catheter Type [Right Peripheral IV Forearm] IV Catheter Type [Right Upper Mid-line Peripheral Line arm] IV Catheter Type [Left Upper Peripheral IV arm] IV Catheter Type [Left Peripheral IV Antecubital] IV Catheter Type [Right Peripheral IV Antecubital] IV Catheter Gauge [Right 20 Forearm] IV Catheter Gauge [Right Upper 18 arm] IV Catheter Gauge [Left Upper 20 arm] IV Catheter Gauge [Left 20 Antecubital] IV Catheter Gauge [Right 18 Antecubital] Diagnostics 10/26/24 10/26/24 10/25/24 Range/Units 05:35 00:50 22:26 WBC Pending (4.4-10.8) 10^3/uL RBC Pending (3.93-5.22) 10^6/uL Hgb Pending (11.2-15.7) g/dL Hct Pending (36.0-46.0) % MCV Pending (80-95) fL MCH Pending (27.0-33.0) pg MCHC Pending (32.0-36.0) % RDW Pending (11.7-14.6) % Plt Count Pending (130-400) 10^3/uL MPV Pending (8.0-11.0) fL PT Pending (9.1-11.1) sec INR Pending (0.9-1.1) VBG pH 7.39 (7.31-7.41) VBG pCO2 37 L (41-51) mmHg VBG pO2 66 mmHg VBG HCO3 23 (23-28) mmol/L VBG Total CO2 22 L (24-29) mmol/L VBG O2 Saturation 93 % VBG Base Excess -2 (-2-3) mmol/L VBG Lactate 2.2 H* (<or=2.0) mmol/L Sodium Pending 131 L (136-145) mmol/L Potassium Pending 3.0 L (3.5-5.1) mmol/L Chloride Pending 97 L (98-107) mmol/L Carbon Dioxide Pending 23.8 (21.0-32.0) mmol/L Anion Gap Pending 10.2 (3-11) mmol/L BUN Pending 14 (7-18) mg/dL Creatinine Pending 1.2 H (0.55-1.02) mg/dL Est GFR (CKD-EPI 2020) Pending 60.54 (mL/min/1.73m2) Glucose Pending 146 H (74-106) mg/dL Calcium Pending 8.4 L (8.5-10.1) mg/dL Magnesium Pending (1.8-2.4) mg/dL Iron (50-170) ug/dL TIBC (250-450) ug/dL Transferrin % Sat (15-50) % Total Bilirubin Pending 41.3 H* (0.2-1.0) mg/dL AST Pending 206 H (15-37) U/L ALT Pending 66 H (14-59) U/L Alkaline Phosphatase Pending 149 H (46-116) U/L Troponin I 78 H* (<or=51) ng/L NT-Pro-B Natriuret Pep 3416 H (<300) pg/mL Total Protein Pending 7.0 (6.4-8.2) g/dL Albumin Pending 3.3 L (3.4-5.0) g/dL Hepatitis A IgM Ab (Negative) Hep Bs Antigen (Negative) Hep B Core Total Ab (Negative) Hepatitis C Antibody (Negative) MRSA (TEM-PCR) Pending ABO/Rh Antibody Screen Crossmatch 10/25/24 10/25/24 10/24/24 Range/Units 16:45 06:00 07:50 WBC 14.02 H (4.4-10.8) 10^3/uL RBC 1.84 L (3.93-5.22) 10^6/uL Hgb 8.2 L 6.8 L* (11.2-15.7) g/dL Hct 23.4 L 18.9 L* (36.0-46.0) % MCV 103 H (80-95) fL MCH 37.0 H (27.0-33.0) pg MCHC 36.0 (32.0-36.0) % RDW 17.3 H (11.7-14.6) % Plt Count 91 L (130-400) 10^3/uL MPV 10.1 (8.0-11.0) fL PT 28.6 H (9.1-11.1) sec INR 3.1 H (0.9-1.1) VBG pH (7.31-7.41) VBG pCO2 (41-51) mmHg VBG pO2 mmHg VBG HCO3 (23-28) mmol/L VBG Total CO2 (24-29) mmol/L VBG O2 Saturation % VBG Base Excess (-2-3) mmol/L VBG Lactate (<or=2.0) mmol/L Sodium 128 L (136-145) mmol/L Potassium 3.1 L (3.5-5.1) mmol/L Chloride 94 L (98-107) mmol/L Carbon Dioxide 21.6 (21.0-32.0) mmol/L Anion Gap 12.4 H (3-11) mmol/L BUN 14 (7-18) mg/dL Creatinine 1.2 H (0.55-1.02) mg/dL Est GFR (CKD-EPI 2020) 60.54 (mL/min/1.73m2) Glucose 133 H (74-106) mg/dL Calcium 8.2 L (8.5-10.1) mg/dL Magnesium 2.4 (1.8-2.4) mg/dL Iron 64 (50-170) ug/dL TIBC 52 L (250-450) ug/dL Transferrin % Sat 123 H (15-50) % Total Bilirubin 34.8 H* (0.2-1.0) mg/dL AST 195 H (15-37) U/L ALT 58 (14-59) U/L Alkaline Phosphatase 130 H (46-116) U/L Troponin I (<or=51) ng/L NT-Pro-B Natriuret Pep (<300) pg/mL Total Protein 6.4 (6.4-8.2) g/dL Albumin 2.6 L (3.4-5.0) g/dL Hepatitis A IgM Ab Negative (Negative) Hep Bs Antigen Negative (Negative) Hep B Core Total Ab Negative (Negative) Hepatitis C Antibody Negative (Negative) MRSA (TEM-PCR) ABO/Rh Antibody Screen Crossmatch 10/23/24 Range/Units 19:43 WBC (4.4-10.8) 10^3/uL RBC (3.93-5.22) 10^6/uL Hgb (11.2-15.7) g/dL Hct (36.0-46.0) % MCV (80-95) fL MCH (27.0-33.0) pg MCHC (32.0-36.0) % RDW (11.7-14.6) % Plt Count (130-400) 10^3/uL MPV (8.0-11.0) fL PT (9.1-11.1) sec INR (0.9-1.1) VBG pH (7.31-7.41) VBG pCO2 (41-51) mmHg VBG pO2 mmHg VBG HCO3 (23-28) mmol/L VBG Total CO2 (24-29) mmol/L VBG O2 Saturation % VBG Base Excess (-2-3) mmol/L VBG Lactate (<or=2.0) mmol/L Sodium (136-145) mmol/L Potassium (3.5-5.1) mmol/L Chloride (98-107) mmol/L Carbon Dioxide (21.0-32.0) mmol/L Anion Gap (3-11) mmol/L BUN (7-18) mg/dL Creatinine (0.55-1.02) mg/dL Est GFR (CKD-EPI 2020) (mL/min/1.73m2) Glucose (74-106) mg/dL Calcium (8.5-10.1) mg/dL Magnesium (1.8-2.4) mg/dL Iron (50-170) ug/dL TIBC (250-450) ug/dL Transferrin % Sat (15-50) % Total Bilirubin (0.2-1.0) mg/dL AST (15-37) U/L ALT (14-59) U/L Alkaline Phosphatase (46-116) U/L Troponin I (<or=51) ng/L NT-Pro-B Natriuret Pep (<300) pg/mL Total Protein (6.4-8.2) g/dL Albumin (3.4-5.0) g/dL Hepatitis A IgM Ab (Negative) Hep Bs Antigen (Negative) Hep B Core Total Ab (Negative) Hepatitis C Antibody (Negative) MRSA (TEM-PCR) ABO/Rh B Negative Antibody Screen NEGATIVE Crossmatch See Detail 10/24/24 10:40 Blood Culture - Preliminary Blood NO GROWTH 24 HOURS 10/24/24 09:15 Blood Culture - Preliminary Blood NO GROWTH 24 HOURS Intake and Output - 24 Hour Total 10/23/24 19:12 thru 10/26/24 01:43 Intake Total 4151.333 Output Total 1775 Balance 2376.333 Weight 136.4 kg Intake: IV 1071.333 Oral 2430 Blood Product 650 Rbc Leuko Reduced Unit 300 [id number] Rbc Leuko Reduced Irradiated 350 Unit [id number] Output: Urine 1775 Other: Urine Color Vermillion Urine Appearance Clear Urine Odor None Comment unmeasured, mixed with liquid stool Stool Size Small Stool Characteristics Liquid Brown Falls Risk Assessment History of Falls No History 10/24/24 02:15 Contributing Factors Confusion 10/24/24 02:15 Ambulatory Aids Independent 10/24/24 02:15 Tubes/Lines With any additional score 10/24/24 02:15 Gait Evaluation W/any additional score 10/24/24 02:15 Cognition No cognitive impairment 10/24/24 02:15 Fall Total Score 43 10/24/24 02:15 Level of Risk Moderate Risk 10/24/24 02:15 Problems (Last Reviewed 10/25/24 @ 17:07 by Jenelle Soto NP) SBP (spontaneous bacterial peritonitis) (Acute) Palliative care encounter (Acute) ACP (advance care planning) (Acute) Alcohol use disorder (Acute) Hepatorenal syndrome (Acute) Acute alcoholic hepatitis (Acute) Alcoholic cirrhosis (Acute) Elevated brain natriuretic peptide (BNP) level (Acute) Macrocytic anemia (Acute) Leukocytosis (Acute) Jaundice (Acute) Hypomagnesemia (Acute) Hypokalemia (Acute) Acute hyponatremia (Acute) Acute hepatic encephalopathy (Acute) Acute liver failure (Acute) Notes 10/26/24 01:22 Respiratory by Dina Brown Paged for pt's increased wob and increasing o2 needs. Pt is tachypniec and unable to tolerate oxymask. Placed on high flow nc 15L, Pt's sats in the mid 90's. Lungs sound wet, RN gave lasix and pt requested to sit up in a chair to help her wob. Pt was subsequently moved to the ICU for close monitoring. Pt would benefit from cpap but says she can not tolerate it. Will continue to monitor wob and o2 status. Initialized on 10/26/24 01:22 - END OF NOTE v v v v v v v v v Sending and/or Receiving Nurses: Please use comment section below to note any information pertinent to the patient hand-off not included above. Information / Comments: Pt confused, up with walker and one assist to BSC with dyspnea, Albumin x 4, 1 unit RBC, repeat Hgb 8.2, lactulose, lasix, po thiamine, ceftriaxone and doxycline, Patient was wheezy in morning 10/25 and applied 0.5L oxygen, during day right crackles and rhonhi, now on 3L NC, coughing, tele SR 90s-100s, ascites, bruise everywhere, 3 total BMs today (liquid), scratches, jaundice, #20 RFA, #20LUA, tea colored uirne Report received from: Marquita, REINFORCEMENT MAKER @ [phone]
[2024-10-26] MEDS: DOXYCYCLINE 100 MG in Normal Saline 100 ML IVPB ×2 (05:55→19:20)
[2024-10-26 06:12] LABS: HCT 22.7 % (36.0-46.0); HGB 8.1 g/dL (11.2-15.7); MCH 36.3 pg (27.0-33.0); MCHC 35.7 % (32.0-36.0); MCV 102 fL (80-95); MPV 10.5 fL (8.0-11.0); RBC 2.23 10^6/uL (3.93-5.22); RDW-SD 74.4 fL; WBC 14.51 10^3/uL (4.4-10.8)
[2024-10-26 06:41] LABS: Magnesium 2.2 mg/dL (1.8-2.4)
[2024-10-26 06:53] LABS: ALT 71 U/L (14-59); AST 221 U/L (15-37); Albumin 3.4 g/dL (3.4-5.0); Alkaline Phosphatase 158 U/L (46-116); Anion Gap 12.5 mmol/L (3-11); BUN 16 mg/dL (7-18); CO2 25.5 mmol/L (21.0-32.0); CREATININE 1.1 mg/dL (0.55-1.02); Calcium 8.7 mg/dL (8.5-10.1); Chloride 98 mmol/L (98-107); Glucose 132 mg/dL (74-106); Sodium 136 mmol/L (136-145); Total Protein 7.4 g/dL (6.4-8.2)
[2024-10-26 06:55] LABS: INR 2.9 (0.9-1.1); Prothrombin Time 27.4 sec (9.1-11.1)
[2024-10-26 07:05] LABS: Platelet Count 83 10^3/uL (130-400); RDW 20.7 % (11.7-14.6)
[2024-10-26 07:22] LABS: Bilirubin, Total 44.6 mg/dL (0.2-1.0); Potassium 2.6 mmol/L (3.5-5.1)
[2024-10-26] MEDS: Folic Acid 1 MG TAB PO (08:50)
[2024-10-26] MEDS: methylPREDNISolone 4 MG TAB 32 MG PO (08:50)
[2024-10-26] MEDS: Lactulose 20 GM/30 ML CUP PO ×2 (08:51→20:58)
[2024-10-26] MEDS: Pantoprazole 40 MG VIAL IVP (08:51)
[2024-10-26] MEDS: Thiamine 100 MG TAB PO (08:51)
[2024-10-26] MEDS: PHYTONADIONE 10 MG in Normal Saline 50 ML 200 MG IVPB (09:23)
[2024-10-26] MEDS: Citalopram 20 MG TAB 10 MG PO (09:51)
[2024-10-26] MEDS: Potassium Chloride 20 MEQ TABCR 40 MEQ PO ×3 (10:02→20:57)
--- NOTE | 2024-10-26 13:23 | PGE_ITS ---
Date of Service Date of service: 10/26/24 Time of Service: 13:23 Assessment and Plan Assessment and plan (1) Acute liver failure: Status: Acute Assessment and plan: This is acute on chronic liver failure with elevated bili/INR and some enceophalopathy and organ damage with MAO. On admission hemodynamically stable without severe systemic inflammation. Case reviewed with Dr. Majano at [facility] GI on admission and 10/24. Case reviewed 10/25 with [facility] transplant hepatology services. She is not a candidate for transplant as she was drinking despite known liver disease Overall some slight improvement in GFR and sodium is encouraging, but prognosis remains challenging Na-MELD - 38 on admission (65% mortality in 90 days) Maddrey's Discriminant Function - 113 Poor prognosis, started methylprednisolone as below, though consider stopping if signs of worsening infection per GI. -Stopped diuresis given concern for HRS -Consulted surgery to consider paracentesis w/ fluid analysis, but too late to help guide therapy so deferred -Echo 10/24 showed normal LVEF, collapsible IVC at that point. -Started IV CTX for possible SBP w/ AMS on admission, expanded to Pip/tazo and doxy 10/25 with possible lung infiltrate. -S/p albumin infusion 100g x 2 days given some degree of hepatorenal syndrome -mild/moderate encephalopathy, similar today, continue lactulose. -Not a transplant candidate as above -Case reviewed with [facility] again GI 10/26, no major changes recommended. -Trend in Na, Cr is good, INR down slightly, though bleeding more. Get total/direct bili daily per GI to differentiate hemolysis contributing to hyperbili -nutrition consult to help optimize nutrition (2) Acute alcoholic hepatitis: Status: Acute Assessment and plan: See above, on steroids Monitor response, continue x 28 days if responding per Lille score at day 7 Start PPI for bleeding prophylaxis - no change 10/26 (3) Acute hypoxic respiratory failure: Status: Acute Assessment and plan: CXR c/w bilateral pneumonia, expanded antibiotics as above She did respond to furosemide, creatinine trended down despite this. Clinically still c/w some pulmonary edema on exam and POCUS though hard to differentiate from sergio pneumonia or ARDS developing. Will give one additional dose of furosemide, otherwise supportive care. (4) Acute hyponatremia: Status: Acute Assessment and plan: Associated with decompenated cirrhosis. Treating as above, stopped renal toxins, giving albumin, fluid restrict. Resolved this morning, can stop fluid restriction (5) Hypokalemia: Status: Acute Assessment and plan: -Additional more aggressive repletion IV and today orally -Mg normalized (6) Leukocytosis: Status: Acute Assessment and plan: This maybe reactive considering her alcoholic liver cirrhosis. Concern for SBP w/ her ER admission for AMS. - Blood Cx NGTD, u/a negative. -CT C/A/P without clear source of infection x possible lung infiltrate. Given developing hypoxia 10/25 added doxy, then expanded to pip/tazo with doxy. -Discussed paracentesis w/ fluid analysis, but surgery declines as it would not affect management. (7) Macrocytic anemia: Status: Acute Assessment and plan: - Folic Acid and B12 okay, iron not low. - No signs of active bleed, but high risk for bleeding, as well as bone marrow suppression and gastritis - Transfused x 1 unit 10/24 and again 10/25 - She may be hemolyzing per GI consult, which would make sense with bili increasing. -given vitamin k 10mg IV 10/26 -monitor direct bili as above (8) Hepatorenal syndrome: Status: Acute Assessment and plan: as above, Cr down again slightly this am (9) Acute hepatic encephalopathy: Status: Acute Assessment and plan: as above, still mildly encephalopathic (10) Alcohol abuse: Assessment and plan: Discussed goal of sobriety, offer treatment options as we approach discharge. She has had a history of medical management with naltrexone, baclofen, but options limited with hepatic failure. Palliative on board, partner aware. (11) Palliative care encounter: Status: Acute Assessment and plan: We again discussed tenuous prognosis. She voiced understanding. I do think she gets it. I voiced my support for her choices but also suggested she consider reconciliation with her mom/family given her situation. Subjective Subjective Patient reports: tolerating a regular diet and voiding w/o difficulty; denies diarrhea, nausea, vomiting or fever Interval history since last seen: Events: Received 2nd round of 100g albumin 10/25 Received PRBC unit #2 10/25 Seen by palliative care, discussed prognosis hypoxia developing, treated with furosemide 40mg, then 80mg Attempted transfer to floor, but back in unit after worse hypoxia, on HFNC up to 10 liters Troponin elevated, EKG not ischemic ceftriaxone changed to pip/tazo, doxycycline added She feels okay. She get SOB when she tries to get up, chest gets tight feeling. No pain/tightness now. She has a cough, minimal sputum. Per RN some increased seeping from wounds, period bleeding, some blood in stool. She is still hungry, would like to drink more. Exam Narrative Exam Narrative: GEN: Alert and oriented x 4, Speech more fluid but still some word finding difficulty/confusion. No acute distress at rest. HEENT: Icteric. MMM LUNGS: CTAB with normal effort, no wheeze or rales CV: RRR with no murmurs, gallops, or rubs. ABD: active bowel sounds, soft, softly distended, very slight fluid wave, not tense, no masses EXT: no cyanosis, clubbing. Diffuse 1-2+ pitting edema of LE. NEURO: CN 2-12 grossly intact. Normal movement of 4 extremities. Normal speech and coordination. more subtle asterxis with hands extended SKIN: Jaundiced. No rashes or open wounds. PSYCH: normal mood and affect, thought process intact, no hallucinations Objective Last Vital Signs Temp 37.4 C 10/26/24 10:26 Pulse 92 H 10/26/24 12:14 Resp 24 10/26/24 12:14 BP 163/97 H 10/26/24 12:14 Pulse Ox 92 10/26/24 12:14 Laboratory Results - last 24 hr 10/23/24 10/25/24 10/25/24 19:43 16:45 22:26 WBC RBC Hgb 8.2 L Hct 23.4 L MCV MCH MCHC RDW Plt Count MPV PT INR VBG pH 7.39 VBG pCO2 37 L VBG pO2 66 VBG HCO3 23 VBG Total CO2 22 L VBG O2 Saturation 93 VBG Base Excess -2 VBG Lactate 2.2 H* Sodium 131 L Potassium 3.0 L Chloride 97 L Carbon Dioxide 23.8 Anion Gap 10.2 BUN 14 Creatinine 1.2 H Est GFR (CKD-EPI 2020) 60.54 Glucose 146 H Calcium 8.4 L Magnesium Total Bilirubin 41.3 H* AST 206 H ALT 66 H Alkaline Phosphatase 149 H Troponin I 78 H* NT-Pro-B Natriuret Pep 3416 H Total Protein 7.0 Albumin 3.3 L MRSA (TEM-PCR) Crossmatch See Detail 10/26/24 10/26/24 00:50 05:35 WBC 14.51 H RBC 2.23 L Hgb 8.1 L Hct 22.7 L MCV 102 H MCH 36.3 H MCHC 35.7 RDW 20.7 H Plt Count 83 L MPV 10.5 PT 27.4 H INR 2.9 H VBG pH VBG pCO2 VBG pO2 VBG HCO3 VBG Total CO2 VBG O2 Saturation VBG Base Excess VBG Lactate Sodium 136 Potassium 2.6 L* Chloride 98 Carbon Dioxide 25.5 Anion Gap 12.5 H BUN 16 Creatinine 1.1 H Est GFR (CKD-EPI 2020) 67.20 Glucose 132 H Calcium 8.7 Magnesium 2.2 Total Bilirubin 44.6 H* AST 221 H ALT 71 H Alkaline Phosphatase 158 H Troponin I NT-Pro-B Natriuret Pep Total Protein 7.4 Albumin 3.4 MRSA (TEM-PCR) Negative Crossmatch Time Spent with Patient Time Spent with Patient: >50 minutes Time was spent: preparing to see the patient(eg.review tests), obtaining and/or reviewing separately otained hiistory, ordering medications,tests, procedures, referring, communicating with other health home care assistant, indepentently interpreting results, counseling the patient and care coordination
[2024-10-26] MEDS: LORazepam 2 MG/ML VIAL 0.5 MG IVP (13:54)
[2024-10-26 14:23] LABS: Troponin I 49 ng/L (<or=51)
--- NOTE | 2024-10-26 14:59 | W.ED.FU ---
Date of service: 11/24/24 Time of Service: 14:59
--- NOTE | 2024-10-26 15:04 | W.EDPROG ---
Date of service: 10/26/24 Time of Service: 15:04 Medical Decision Making I was asked to participate in this patient's care by Dr. Harris with a bedside ultrasound. In brief this is a 33-year-old female with jaundice edema history of ethanol abuse and likely alcoholic cirrhosis. I saw the patient in the ICU. There was a formal echocardiogram obtained yesterday. Patient had a normal EF with no segmental wall motion abnormalities. She has been receiving diuretics. Her creatinine has marginally improving. She was started on antibiotics for possible lung infiltrate. On bedside exam she had bilateral B-lines preserved ejection fraction for which she will receive additional dose of furosemide. It appears that her EF is preserved. Quality:SD[facility] Health Related Social Needs: No Data to Display Discharge Plan Disposition Patient Disposition: Admit to [facility] Condition: Serious Discharge Details Clinical Impression: Acute liver failure, Acute hepatic encephalopathy, Anemia, Acute hyponatremia, Hypokalemia, Hypomagnesemia, Jaundice Admit Date/Time: 10/24/24 01:18 Admit Provider: Jose Michel Attending Provider: Jose Michel Primary Care Provider: Dasia Mullins ED Provider: Eli Miller Discharge Data Discharge Date/Time-TO BE ENTERED AT DEPARTURE: 10/24/24 02:10 POCUS Exam (ED) Limited Cardiac Exam DATE OF EXAM: 10/26/24 TIME OF EXAM: 14:15 PROVIDER THAT PERFORMED THE STUDY: Vik Shelton IS THIS A REPEAT EXAM DURING THIS ENCOUNTER: no REASON FOR EXAM: Dyspnea VISUALIZED STRUCTURES: Four Chambers, Left ventricle, LVOT and Other (Lungs bilaterally) structure: Lungs VIEW OBTAINED: Apical 4-Chamber, Parasternal long-axis and Subxiphoid PERTINENT FINDINGS/IMPRESSION: No pericardial effusion and No RV dilation DIFFERENTIAL DIAGNOSES: Aortic outflow track less than 4 cm, good squeeze, RV less than LV, no significant pericardial effusion.bilateral B-lines. Difficult to visualize IVC. Exam complete
--- NOTE | 2024-10-26 15:10 | CHAPLAIN ---
Becca was sleeping when I visited and I was not able wake her by talking to her. I left a prayer shawl for her. She is here with acute liver failure. During a Palliative Consult yesterday, Becca indicated she would like to focus on the positive. Jenelle Soto, KASIA from Palliative explained that her liver is not likely to recover, given test indications currently. She has been turned down from [facility] and [facility] for a liver transplant as she hasn't been without alcohol for more than 90 days. She indicated to Jenelle that she would like to attain that goal to be eligible for a transplant. Becca has indicated to staff that she does not want her mother or other family members involved in her health care decisions, or to have them visit. She has listed her boyfriend, Arun, as her HCA. He has been visiting. I will plan to visit with her another time when she is awake.
--- NOTE | 2024-10-26 15:45 | CMPROGNOTE_ITS ---
Date of service: 10/26/24 Time of Service: 15:45 Care Management Progress Note Progress Note Text Progress Note Text: Becca was sitting up in the bed when CM met with her today. She had just gotten back into bed from the chair. Becca was very pleasant, but a lot of what she had to say was tangential, so very difficult to follow. Becca stated that she was told earlier in the day that she may from this illness. She stated that she just wanted to sleep. Becca stated that she is very happy with the small family that she and her have built, not people that are related, but people I love. Becca was appreciative of the visit, but asked to be allowed to nap. Discharge Potential Discharge Needs: PT Evaluation, PCP F/U Appt and Other (pick out hand) Anticipated Barriers to Discharge: None Identified Patient/Family Education Needs: Review discharge instructions, discuss Ask Me Three Plan: Becca's discharge plan is uncertain at this point due to her critical medical status. She is being closely monitored and treated in the ICU, and her prognosis is poor. CM will continue to support Becca and update her plan of care as things become more clear. Social Determinants of Health Screening Will the Patient Participate in the Screening?: Unable to obtain
[2024-10-26] MEDS: Acetaminophen 325 MG TAB 650 MG PO (16:11)
[2024-10-26] MEDS: Normal Saline 500 ML IV (18:04)
[2024-10-27] VITALS (12 sets, daily range): BP systolic 127–153; BP diastolic 57–90; PULSE 89–100; RESP 18–31; O2SAT 94–98
[2024-10-27 06:24] LABS: ALT 74 U/L (14-59); AST 208 U/L (15-37); Albumin 2.6 g/dL (3.4-5.0); Anion Gap 10.4 mmol/L (3-11); BUN 21 mg/dL (7-18); CO2 24.6 mmol/L (21.0-32.0); CREATININE 1.3 mg/dL (0.55-1.02); Calcium 8.3 mg/dL (8.5-10.1); Chloride 102 mmol/L (98-107); Glucose 138 mg/dL (74-106); Potassium 3.7 mmol/L (3.5-5.1); Sodium 137 mmol/L (136-145); Total Protein 6.2 g/dL (6.4-8.2)
[2024-10-27 06:26] LABS: INR 2.8 (0.9-1.1); Prothrombin Time 26.2 sec (9.1-11.1)
[2024-10-27] MEDS: DOXYCYCLINE 100 MG in Normal Saline 100 ML IVPB ×2 (06:37→17:40)
[2024-10-27 06:52] LABS: Bilirubin, Direct 26.1 mg/dL (0.0-0.2)
[2024-10-27] MEDS: methylPREDNISolone 4 MG TAB 32 MG PO (07:39)
[2024-10-27] MEDS: Lactulose 20 GM/30 ML CUP PO ×2 (07:39→20:11)
[2024-10-27] MEDS: Citalopram 20 MG TAB 10 MG PO (07:39)
[2024-10-27] MEDS: Pantoprazole 40 MG VIAL IVP (07:40)
[2024-10-27] MEDS: Normal Saline Flush 10 ML SYR IVP ×2 (07:40→20:11)
[2024-10-27] MEDS: Folic Acid 1 MG TAB PO (07:41)
[2024-10-27] MEDS: Potassium Chloride 20 MEQ TABCR 40 MEQ PO ×3 (07:41→20:10)
[2024-10-27] MEDS: Thiamine 100 MG TAB PO (07:41)
[2024-10-27 07:53] LABS: Alkaline Phosphatase 145 U/L (46-116)
--- NOTE | 2024-10-27 12:21 | PGE_ITS ---
Date of Service Date of service: 10/27/24 Time of Service: 12:21 Assessment and Plan Assessment and plan (1) Acute liver failure: Status: Acute Assessment and plan: -acute on chronic liver failure presenting with elevated bili/INR and some enceophalopathy and organ damage with MAO. -On admission hemodynamically stable without severe systemic inflammation. -Case reviewed with Dr. Majano at [facility] GI on admission and 10/24. -Case reviewed 10/25 with [facility] [place] [facility] [place]. She is not a candidate for transplant as she was drinking despite known liver disease -Overall some slight improvement in GFR and sodium is encouraging, but prognosis remains challenging -Na-MELD - 38 on admission (65% mortality in 90 days) -Maddrey's Discriminant Function - 113 Poor prognosis, started methylprednisolone as below, though consider stopping if signs of worsening infection per GI. -Stopped diuresis given concern for HRS -Consulted surgery to consider paracentesis w/ fluid analysis, but too late to help guide therapy so deferred -Echo 10/24 showed normal LVEF, collapsible IVC at that point. -Started IV CTX for possible SBP w/ AMS on admission, expanded to Pip/tazo and doxy 10/25 with possible lung infiltrate. -S/p albumin infusion 100g x 2 days given some degree of hepatorenal syndrome -encephalopathy appears to be improving, will continue with lactulose -Not a transplant candidate as above -Case reviewed with [facility] again GI 10/26, no major changes recommended. -Na, Tbili, Hb, INR all improved, Cr 1.3 on 10/27 (up from 1.1 day prior) -contnue to trend CMP (2) Acute alcoholic hepatitis: Status: Acute Assessment and plan: -See above, on steroids -Monitor response, continue x 28 days if responding per Lille score at day 7 -Started PPI for bleeding prophylaxis, will continue (3) Acute hypoxic respiratory failure: Status: Acute Assessment and plan: -CXR c/w bilateral pneumonia, expanded antibiotics as above -She did respond to furosemide, creatinine trended down despite this. -Clinically still c/w some pulmonary edema on exam and POCUS though hard to differentiate from sergio pneumonia or ARDS developing. -s/p additional dose of lasix on 10/27 -continues to require 2L NC though documented at 95%, may also have component of atelectasis given lack of ambulation/movement (4) Acute hyponatremia: Status: Acute Assessment and plan: -Associated with decompenated cirrhosis. -Treating as above, stopped renal toxins, giving albumin, fluid restrict. -Resolved as of AM 10/26 (5) Hypokalemia: Status: Acute Assessment and plan: -Additional more aggressive repletion IV and today orally -Mg normalized (6) Leukocytosis: Status: Acute Assessment and plan: -This maybe reactive considering her alcoholic liver cirrhosis ad steroids -Blood Cx NGTD, u/a negative. -CT C/A/P without clear source of infection x possible lung infiltrate. Given developing hypoxia 10/25 added doxy, then expanded to pip/tazo with doxy. -Discussed paracentesis w/ fluid analysis, but surgery declines as it would not affect management. (7) Macrocytic anemia: Status: Acute Assessment and plan: - Folic Acid and B12 okay, iron not low. - No signs of active bleed, but high risk for bleeding, as well as bone marrow suppression and gastritis - Transfused x 1 unit 10/24 and again 10/25 - She may be hemolyzing per GI consult, which would make sense with bili increasing. -given vitamin k 10mg IV 10/26 -monitor direct bili as above (8) Hepatorenal syndrome: Status: Acute Assessment and plan: -as above (9) Acute hepatic encephalopathy: Status: Acute Assessment and plan: as above, still mildly encephalopathic, though improved as noted above (10) Alcohol abuse: Assessment and plan: Discussed goal of sobriety, offer treatment options as we approach discharge. She has had a history of medical management with naltrexone, baclofen, but options limited with hepatic failure. Palliative on board, partner aware. (11) Palliative care encounter: Status: Acute Assessment and plan: -Previous provider discussed tenuous prognosis. She voiced understanding. I do think she gets it. I voiced my support for her choices but also suggested she consider reconciliation with her mom/family given her situation. Subjective Subjective Interval history since last seen: Patient states that she is still tired but does feel better as compared to previous days. She is also encouraged that her labs appear to be improving. Exam Narrative Exam Narrative: chronically ill appearing female laying in bed in no acute distress, severely jaundiced with scleral icterus, awake but fatigued, AOx4, heart RRR, lungs CTAB, abdomen obese but soft, non-tender, non-distended Objective Last Vital Signs Temp 99.7 F H 10/26/24 16:03 Pulse 93 H 10/27/24 12:10 Resp 23 10/27/24 12:10 BP 127/57 L 10/27/24 12:10 Pulse Ox 95 10/27/24 12:10 Laboratory Results - last 24 hr 10/26/24 10/27/24 13:37 05:29 PT 26.2 H INR 2.8 H Sodium 137 Potassium 3.7 D Chloride 102 Carbon Dioxide 24.6 Anion Gap 10.4 BUN 21 H Creatinine 1.3 H Est GFR (CKD-EPI 2020) 55.00 Glucose 138 H Calcium 8.3 L Total Bilirubin 39.0 H* Conjugated Bilirubin 26.1 H AST 208 H ALT 74 H Alkaline Phosphatase 145 H Troponin I 49 Total Protein 6.2 L Albumin 2.6 L Time Spent with Patient Time Spent with Patient: >50 minutes Time was spent: preparing to see the patient(eg.review tests), obtaining and/or reviewing separately otained hiistory, ordering medications,tests, procedures, referring, communicating with other health care coordination manager, indepentently interpreting results, counseling the patient and care coordination
--- NOTE | 2024-10-27 13:28 | W.NUTCONSULT ---
Date of service: 10/27/24 Time of Service: 13:28 Nutritional Consult ASSESSMENT: see nutrition note 10/26/24 for initial assessment. Was able to visit pt today while she was laying in bed awake and alert with boyfriend at bedside as well. Pt confirms low appetite and doesn't particularly care for the cafeteria food here. Informed pt she is on regular diet and can have items on pt menu as well as different options in cafeteria. When asked what questions she may have about her nutrition she is wondering about supplements and ask that I give her a list of foods and supplement she should consider. I printed off nutrition-related handout for cirrhosis and nutrition guidance with some info she can present to her provider to vet before starting: tumeric/curcumin, milk thistle, l-carnatine, and BCAA's are most notable to support her goals at this time. INTERVENTION: gave handout to pt with my card attached for any further questions or if she'd like outpatient support in menu planning as I highlighted that her diet overrides any supplements to help improve her overall health MONITORING AND EVALUATION: will check in again to see if she has any questions before discharge. Time Spent in Nutritional Counseling and Treatment: 15 minutes
--- NOTE | 2024-10-27 14:52 | W.PALPGNOTE ---
Date of service: 10/27/24 Time of Service: 09:00 Assessment and Plan Assessment and plan (1) Acute liver failure: Status: Acute Assessment and plan: acute on chronic, decompensated (ascites, HRS, encephalopathy, jaundice) initially diagnosed 3 years ago, no active engagement or treatments Case [place] [facility] [place]; not transplant candidate, no changes recommended - pRBC infusions /6 and 4/7 and albumin infusions 100g x2 - Na, Tbili, Hbg, INR improving, as per HPI - continues methylprednisolone, lactulose, PPI for proph; abx initially started for proph SBP, transitioned to doxy and pip/tazo (2) Hepatorenal syndrome: Status: Acute Assessment and plan: BUN/Cr continue to trend up; continue monitoring Unclear if type 1 vs type 2 - no recent labs/engagement - monitor, if no improvement in 2wks, HRS not anticipated to change (3) Jaundice: Status: Acute (4) Acute hepatic encephalopathy: Status: Acute Assessment and plan: improved continue lactulose (5) Acute hypoxic respiratory failure: Status: Acute Assessment and plan: CXR consistent w/bilat PNA, doxy and pip/marito - some concern w/pleural effusion, Lasix last given 10/27, on hold d/t renal concerns continues to require 2L NC, remains >90% throughout visit (6) Muscle weakness: (7) Mixed anxiety and depressive disorder: Assessment and plan: Did receive one dose of Ativan w/good effect (8) Alcohol use disorder: Status: Acute Assessment and plan: no use in 10 days longest period of sobriety in 3 years is 3 mos interested in engaging with call or contact centre coach, working w/CM for coordination (9) Palliative care encounter: Status: Acute Assessment and plan: PC will continue to follow Becca closely during this hospitalization; f/u check in on Friday - continue to review best case scenario path, steps to get there - only reviewing worst case if worsening progression of disease or if Becca wishes to review - consider AD if appropriate f/u for AD completion on Friday - encouraged Blas look at existing document and write notes (10) ACP (advance care planning): Status: Acute Assessment and plan: reviewed Advanced Directive, importance of reviewing care preferences w/[facility] and documenting preferences for the just in case, worst case scenario - Becca at this time wants all treatment, including CPR, to attempt to keep her alive. She would want all interventions tried. IF there is little/no chance she would regain consciousness, or come off of machines, she would want not want to be kept alive in vegetative state, Arun is aware and reports they have reviewed this together reviewed liver disease and her personal history, severity of current status including renal involvement reviewed current care plan and preferences; reviewed how team wants to ensure she knows how sick she is, make sure she resolves any relationships she needs/wants in the chance that she does not survive. spent 45m w/ACP Subjective Subjective Interval history since last seen: Becca remains hospitalized in ICU 2/2 decompensated acute on chronic liver disease; - two nights ago she was transferred to [place], but unfortunately quickly became hypoxic and tachynpic, transferred back to ICU; CXR consistent w/bilateral PNA, started on doxy and pip/tazo 10/25; remains on oxygen at this time - labs w/some improvement (sodium, potassium, hbg), INR/PT slightly improved; while others are worse (bili, BUN/Cr) - Diuresis on hold; continues fluid restriction; continues methylprednisolone, lactulose; has received 2 infusions of pRBC (10/24 and 10/25) and albumin infusions 1st visit: Becca alone; sleeping comfortably at start of visit, wakes easily, engages readily - denies pain. has SOB w/activity, recovering at rest. appetite reduced, no real appetite - did meet with nutrition today for some ideas, found it quite helpful - bruises scattered around body, are not painful, but are providing some discomfort/distress bc of how severe they are 2nd visit: Becca and Arun are visiting; aware and agreeable for palliative visit Becca was initially diagnosed with liver disease 3 years ago. 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 Volume, periods of intermittent BLE edema, resolved spontaneous, maybe ascites occurred once or twice, never been tapped; no h/o SBP or other infections; Bleeding, has easily bruised for quite some time, more recently w/uncontrolled nose bleeds; Encephalopathy, has had intermittent bouts of increased confusion outside of her normal limits, has never been on lactulose, most confusion/longest period occurred leading to this hospitalization; 2 years ago had endo/colo w/no variceal concerns or active bleeding Becca last used alcohol 10 days ago. the longest period she has gone without alcohol in previous 3 years is 3 mos. She has tried a couple days of naltrexone, but didn't like that. She continues w/preference to continue alcohol cessation, and is open to meeting with call or contact centre coach. She denies withdrawal symptoms. Becca and Arun have lived together in [place] for around 8 years. She is quite happy with her small family, her Arun and their animals. She knows her family (mother, brother, etc) and best friend (Genna) love her, but they are making things more difficult for her right now and she wants to focus on herself, her personal needs, and not support them. Arun has been acting as the family liaison and has been communicating with them, giving brief/limited updates w/info that Becca is comfortable with them knowing. Becca would like to continue to plan for best case scenario, hoping for recovery from liver failure, aware she would need a transplant. She feels like things have gotten better since hospitalization and wants to focus on these positives. She hasn't really thought about the Advanced Directive left earlier, but is open to reviewing it briefly right now w/Arun. She wants to be here as long as I can. She would want all things done to attempt to keep her alive. Exam Narrative Exam Narrative: General: ill appearing 33 y/o F lying in ICU bed HEENT: normocephalic, atraumatic, hearing grossly WNL Resp: w/anxiety becomes tachypnic w/dyspnea, recovers w/time; resp even and unlabored most of visit; no audible wheeze; NC in place Skin: jaundice, predominately in face; scattered bruising, worse BLE, BUE as well Psych: cooperative, calm, increased anxiety w/EOL conversations, recovers appropriately; impoverished, avoids worst case scenario conversations; insight/judgment limited Objective Last Vital Signs Temp 99.7 F H 10/26/24 16:03 Pulse 93 H 10/27/24 12:10 Resp 23 10/27/24 12:10 BP 127/57 L 10/27/24 12:10 Pulse Ox 95 10/27/24 12:10 Laboratory Results - last 24 hr 10/27/24 05:29 PT 26.2 H INR 2.8 H Sodium 137 Potassium 3.7 D Chloride 102 Carbon Dioxide 24.6 Anion Gap 10.4 BUN 21 H Creatinine 1.3 H Est GFR (CKD-EPI 2020) 55.00 Glucose 138 H Calcium 8.3 L Total Bilirubin 39.0 H* Conjugated Bilirubin 26.1 H AST 208 H ALT 74 H Alkaline Phosphatase 145 H Total Protein 6.2 L Albumin 2.6 L
--- NOTE | 2024-10-27 15:56 | CHAPLAIN ---
Becca was finishing a conversation with her Radiology Scheduler when visited. Her SO was with her. He said he plans to stay until visiting hours are over. Becca was much more alert today. She said she's gotten some good rest. She was pleasant and engaged in a conversation. I explained my role and offered support.
--- NOTE | 2024-10-27 16:49 | PDOC.CMPRO ---
Date of service: 10/27/24 Time of Service: 16:49 Care Management Progress Note Progress Note Text Progress Note Text: Becca was sleeping the first time CM went to see her. The next time, Becca was lying in the bed, upright. Arun has just brought her a milk shake, and she was very happy to be enjoying that. Becca looked a bit brighter today than yesterday, and also seemed more coherent. Her sentences were straight forward and connected. Becca denied any needs from CM at this time, but she did accept the offer of a crossword puzzle book. Discharge Potential Discharge Needs: PCP F/U Appt and Other (shipping processor) Anticipated Barriers to Discharge: Medical Status Patient/Family Education Needs: Review discharge instructions, discuss Ask Me Three Plan: Becca's discharge plan is uncertain at this point due to her critical medical status. She is being closely monitored and treated in the ICU, and her prognosis is poor. CM will continue to support Becca and update her plan of care as things become more clear. Social Determinants of Health Screening Will the Patient Participate in the Screening?: Unable to obtain
[2024-10-28] VITALS (17 sets, daily range): BP systolic 112–135; BP diastolic 60–81; PULSE 81–105; RESP 19–38; TEMP 36.7–37.1; O2SAT 90–98
[2024-10-28] MEDS: DOXYCYCLINE 100 MG in Normal Saline 100 ML IVPB ×2 (06:17→17:16)
[2024-10-28 06:44] LABS: HCT 23.1 % (36.0-46.0); HGB 7.8 g/dL (11.2-15.7); MCH 36.6 pg (27.0-33.0); MCHC 33.8 % (32.0-36.0); MPV 10.6 fL (8.0-11.0); RBC 2.13 10^6/uL (3.93-5.22); WBC 19.05 10^3/uL (4.4-10.8)
[2024-10-28 07:09] LABS: INR 2.8 (0.9-1.1); Prothrombin Time 26.5 sec (9.1-11.1)
[2024-10-28 07:28] LABS: ALT 90 U/L (14-59); AST 236 U/L (15-37); Albumin 2.3 g/dL (3.4-5.0); Alkaline Phosphatase 160 U/L (46-116); Anion Gap 8.5 mmol/L (3-11); BUN 23 mg/dL (7-18); CO2 23.5 mmol/L (21.0-32.0); Calcium 8.6 mg/dL (8.5-10.1); Chloride 106 mmol/L (98-107); Estimated GFR 75.34 (mL/min/1.73m2); Glucose 156 mg/dL (74-106); Potassium 4.4 mmol/L (3.5-5.1); Sodium 138 mmol/L (136-145); Total Protein 5.8 g/dL (6.4-8.2)
[2024-10-28 07:29] LABS: MCV 109 fL (80-95); Platelet Count 75 10^3/uL (130-400); RDW 21.2 % (11.7-14.6)
[2024-10-28 07:43] LABS: Bilirubin, Total 39.3 mg/dL (0.2-1.0)
[2024-10-28 07:52] LABS: Bilirubin, Direct 26.5 mg/dL (0.0-0.2)
[2024-10-28] MEDS: Pantoprazole 40 MG VIAL IVP (07:55)
[2024-10-28] MEDS: Lactulose 20 GM/30 ML CUP PO ×2 (07:55→21:14)
[2024-10-28] MEDS: Normal Saline Flush 10 ML SYR IVP ×3 (07:56→21:15)
[2024-10-28] MEDS: Citalopram 20 MG TAB 10 MG PO (07:57)
[2024-10-28] MEDS: Folic Acid 1 MG TAB PO (07:57)
[2024-10-28] MEDS: Thiamine 100 MG TAB PO (07:57)
[2024-10-28] MEDS: methylPREDNISolone 4 MG TAB 32 MG PO (07:58)
[2024-10-28] MEDS: Potassium Chloride 20 MEQ TABCR 40 MEQ PO ×2 (07:58→13:27)
--- NOTE | 2024-10-28 09:00 | PDOC.CMPRO ---
Date of service: 10/28/24 Time of Service: 09:00 Care Management Progress Note Progress Note Text Progress Note Text: Becca was awake and lying in bed when CM met with her; her significant other is sitting next to her holding her hand. She is currently wearing a hoodie with the olmstead pulled up over head and states that she is cold and tired. She accepted the warm blanket CM handed her, then reflected on some of the progress she's made. Per Becca she walked with PT and no longer has a catheter, which she shares is good news. Discharge planning continues, due to the severity of her illness. Palliative is following. If medically able to return home, PT recommends New HH PT services, and would likely benefit from full services through the [facility]. In addition, Renee Shirley notified CM that a report for Self Neglect was received by APS and is being investigated by Pelon Robbins from [employer]. Pelon will be reaching out to Becca to make certain she has the connections she needs to return to the community and will also be connecting with CM. CM will follow. Discharge Anticipated Barriers to Discharge: Medical Status Patient/Family Education Needs: Review discharge instructions, discuss Ask Me Three Plan: A report for self neglect was received by APS and is being investigated by Pelon Robbins from [employer]. Renee from [facility] has been in contact with Pelon Robbins and reports that he may reach out to CM. In the meantime, Sandi continues to he closely monitored and treated in the ICU. Some improvement is noted with her GFR and Sodium, however her prognosis remains challenging, per M.D. PT recommends Home with New PT, if medically able to discharge home. Palliative is following and will see her again on Friday. CM will follow. Social Determinants of Health Screening Will the Patient Participate in the Screening?: Unable to obtain Anticipated HH Services Anticipated HH Services at Discharge [facility] (New RN/PT/OT/LOADER OPERATOR through [facility]. ) Services Needed.
--- NOTE | 2024-10-28 09:38 | PGE_ITS ---
Date of Service Date of service: 10/28/24 Time of Service: 09:38 Assessment and Plan Assessment and plan (1) Acute liver failure: Status: Acute Assessment and plan: -acute on chronic liver failure presenting with elevated bili/INR and some enceophalopathy and organ damage with MAO. -On admission hemodynamically stable without severe systemic inflammation. -Case reviewed with Dr. Majano at [facility] GI on admission and 10/24. -Case reviewed 10/25 with [facility] and [facility] transplant hepatology services. She is not a candidate for transplant as she was drinking despite known liver disease -Overall some slight improvement in GFR and sodium is encouraging, but prognosis remains challenging -Na-MELD - 38 on admission (65% mortality in 90 days) -Maddrey's Discriminant Function - 113 Poor prognosis, started methylprednisolone as below, though consider stopping if signs of worsening infection per GI. -Stopped diuresis given concern for HRS -Consulted surgery to consider paracentesis w/ fluid analysis, but too late to help guide therapy so deferred -Echo 10/24 showed normal LVEF, collapsible IVC at that point. -Started IV CTX for possible SBP w/ AMS on admission, expanded to Pip/tazo and doxy 10/25 with possible lung infiltrate. -S/p albumin infusion 100g x 2 days given some degree of hepatorenal syndrome -encephalopathy appears to be improving, will continue with lactulose -Not a transplant candidate as above -Case reviewed with [facility] again GI 10/26, no major changes recommended. -Na, K, remain WNL -Tbili level at 39, appears to be mostly conjugated, diminishing concerns for hemolysis -Hb stable in high 7's-low 8's -Platlets continuing to decrease, down to 75 from 91 two days prior, down from 138 on admission 10/23 -Cr. improving, down to 1 from a peak of 1.5 on admission -WBC increased from 14 to 19, no fevers or signs of infection, may be secondary to steroids, will continue zosyn for possible PNA and SBP -contnue to trend CMP (2) Acute alcoholic hepatitis: Status: Acute Assessment and plan: -See above, on steroids -Monitor response, continue x 28 days if responding per Lille score at day 7 -Started PPI for bleeding prophylaxis, will continue (3) Acute hypoxic respiratory failure: Status: Acute Assessment and plan: -CXR c/w bilateral pneumonia, expanded antibiotics as above -She did respond to furosemide, creatinine trended down despite this. -Clinically still c/w some pulmonary edema on exam and POCUS though hard to differentiate from sergio pneumonia or ARDS developing. -s/p additional dose of lasix on 10/27 -continues to require 2L NC though documented at 95%, may also have component of atelectasis given lack of ambulation/movement (4) Acute hyponatremia: Status: Acute Assessment and plan: -Associated with decompenated cirrhosis. -Treating as above, stopped renal toxins, giving albumin, fluid restrict. -Resolved as of AM 10/26 (5) Hypokalemia: Status: Acute Assessment and plan: -Additional more aggressive repletion IV and today orally -Mg normalized (6) Leukocytosis: Status: Acute Assessment and plan: -This maybe reactive considering her alcoholic liver cirrhosis ad steroids -Blood Cx NGTD, u/a negative. -CT C/A/P without clear source of infection x possible lung infiltrate. Given developing hypoxia 10/25 added doxy, then expanded to pip/tazo with doxy. -Discussed paracentesis w/ fluid analysis, but surgery declines as it would not affect management. (7) Macrocytic anemia: Status: Acute Assessment and plan: - Folic Acid and B12 okay, iron not low. - No signs of active bleed, but high risk for bleeding, as well as bone marrow suppression and gastritis - Transfused x 1 unit 10/24 and again 10/25 - She may be hemolyzing per GI consult, which would make sense with bili increasing. -given vitamin k 10mg IV 10/26 -monitor direct bili as above (8) Hepatorenal syndrome: Status: Acute Assessment and plan: -as above (9) Acute hepatic encephalopathy: Status: Acute Assessment and plan: as above, still mildly encephalopathic, though improved as noted above (10) Alcohol abuse: Assessment and plan: Discussed goal of sobriety, offer treatment options as we approach discharge. She has had a history of medical management with naltrexone, baclofen, but options limited with hepatic failure. Palliative on board, partner aware. (11) Palliative care encounter: Status: Acute Assessment and plan: -Previous provider discussed tenuous prognosis. She voiced understanding. I do think she gets it. I voiced my support for her choices but also suggested she consider reconciliation with her mom/family given her situation. Subjective Subjective Interval history since last seen: Patient states that she is doing well today and understands the importance of working on her mobility with PT and nursing staff. She has no complaints or concerns at this time. Exam Narrative Exam Narrative: chronically ill appearing female laying in bed in no acute distress, severely ja undiced with scleral icterus, awake but fatigued, AOx4, heart RRR, lungs CTAB, abdomen obese but soft, non-tender, non-distended Objective Last Vital Signs Temp 98.1 F 10/28/24 09:20 Pulse 95 H 10/28/24 09:19 Resp 29 H 10/28/24 09:19 BP 112/60 10/28/24 09:19 Pulse Ox 95 10/28/24 09:19 Laboratory Results - last 24 hr 10/28/24 10/28/24 10/28/24 06:15 06:15 06:15 WBC 19.05 H RBC 2.13 L Hgb 7.8 L Hct 23.1 L MCV 109 H D MCH 36.6 H MCHC 33.8 RDW 21.2 H Plt Count 75 L MPV 10.6 PT 26.5 H INR 2.8 H Sodium 138 Cancelled Potassium 4.4 Cancelled Chloride 106 Carbon Dioxide Anion Gap BUN Creatinine Est GFR (CKD-EPI 2020) Glucose Calcium Total Bilirubin Conjugated Bilirubin AST ALT Alkaline Phosphatase Total Protein Albumin 10/28/24 10/28/24 10/28/24 06:15 06:15 06:15 WBC RBC Hgb Hct MCV MCH MCHC RDW Plt Count MPV PT INR Sodium Potassium Chloride Cancelled Carbon Dioxide 23.5 Cancelled Anion Gap 8.5 Cancelled BUN 23 H Creatinine Est GFR (CKD-EPI 2020) Glucose Calcium Total Bilirubin Conjugated Bilirubin AST ALT Alkaline Phosphatase Total Protein Albumin 10/28/24 10/28/24 10/28/24 06:15 06:15 06:15 WBC RBC Hgb Hct MCV MCH MCHC RDW Plt Count MPV PT INR Sodium Potassium Chloride Carbon Dioxide Anion Gap BUN Cancelled Creatinine 1.0 Cancelled Est GFR (CKD-EPI 2020) 75.34 Cancelled Glucose 156 H Calcium Total Bilirubin Conjugated Bilirubin AST ALT Alkaline Phosphatase Total Protein Albumin 10/28/24 10/28/24 10/28/24 06:15 06:15 06:15 WBC RBC Hgb Hct MCV MCH MCHC RDW Plt Count MPV PT INR Sodium Potassium Chloride Carbon Dioxide Anion Gap BUN Creatinine Est GFR (CKD-EPI 2020) Glucose Cancelled Calcium 8.6 Cancelled Total Bilirubin 39.3 H* Cancelled Conjugated Bilirubin 26.5 H AST 236 H ALT Alkaline Phosphatase Total Protein Albumin 10/28/24 10/28/24 10/28/24 06:15 06:15 06:15 WBC RBC Hgb Hct MCV MCH MCHC RDW Plt Count MPV PT INR Sodium Potassium Chloride Carbon Dioxide Anion Gap BUN Creatinine Est GFR (CKD-EPI 2020) Glucose Calcium Total Bilirubin Conjugated Bilirubin AST Cancelled ALT 90 H Cancelled Alkaline Phosphatase 160 H Cancelled Total Protein 5.8 L Albumin 10/28/24 10/28/24 06:15 06:15 WBC RBC Hgb Hct MCV MCH MCHC RDW Plt Count MPV PT INR Sodium Potassium Chloride Carbon Dioxide Anion Gap BUN Creatinine Est GFR (CKD-EPI 2020) Glucose Calcium Total Bilirubin Conjugated Bilirubin AST ALT Alkaline Phosphatase Total Protein Cancelled Albumin 2.3 L Cancelled Time Spent with Patient Time Spent with Patient: >50 minutes Time was spent: preparing to see the patient(eg.review tests), obtaining and/or reviewing separately otained hiistory, ordering medications,tests, procedures, referring, communicating with other health customer care team coach, indepentently interpreting results, counseling the patient and care coordination
--- NOTE | 2024-10-28 12:02 | IN_ITS ---
PT Notes Visit Reasons: Alcoholic Liver Cirrhosis and Hepatic Encephalopat Inpatient Physical Therapy Evaluation Date: 10/28/2024 Referring Doctor: Dr. Boss PT Orders: PT CONSULT: PT evaluation and treatment Precautions: Telemetry, IV access Patient Profile/Admitting Diagnosis: [Patient is a 33-year-old female presented to the ED on 10/24/2024 with increased confusion, severe jaundice, bilateral lower extremity pitting edema, and frequent falls. Patient diagnosed with hepatic encephalopathy, leukocytosis, alcoholic liver cirrhosis. Patient abdominal CT revealed hepatomegaly with cirrhotic features, extensive ascites and portal hypertension. Patient admitted to ICU unit for medical monitoring and management. With PT consult placed on 10/27/2024 PMHX: Alcoholic cirrhosis (Acute) Elevated brain natriuretic peptide (BNP) level (Acute) Macrocytic anemia (Acute) Leukocytosis (Acute) Jaundice (Acute) Hypomagnesemia (Acute) Hypokalemia (Acute) Acute hyponatremia (Acute) Anemia (Chronic) Acute hepatic encephalopathy (Acute) Acute liver failure (Acute) Medical History Alcohol abuse Alcoholic cirrhosis Anemia Gastritis Mixed anxiety and depressive disorder Muscle weakness Sensory polyneuropathy Surgical History History of esophagogastroduodenoscopy (EGD) History of liver biopsy Social History/Home Situation: Patient resides in second-floor apartment with her fianc?. She has 14 steps to enter with a rail. Patient is not employed at this time. Patient independent ADLs and ambulation without assistive device. 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 She reports her fianc? is very supportive. At this time she is declining use of assistive device stating she does not need it. Patient reports amputation of right toe several years ago at hospital in [place] Objective: [] General Observation: Young jaundiced female supine in bed telemetry in place. Patient initially declining to participate in therapy however when given an option to perform later in the morning patient was agreeable. Mental Status: Alert and oriented x 4, able to follow instructions Pain: Patient reports pain bilateral upper extremities at areas of ecchymosis Vital Signs: monitored via telemetry throughout. ROM: Right Upper Extremity: WNL Left Upper Extremity: WNL Right Lower Extremity: WNL except dorsiflexion to neutral absent digit Left Lower Extremity: WNL except dorsiflexion to neutral Strength: Right Upper Extremity: 5/5 Left Upper Extremity: 5/5 Right Lower Extremity: Hip flexion: 3/5; hip abduction: 3 -/5; hip extension: 3 -/5; knee extension: 3/5; knee flexion: 3 -/5 ankle DF: 3/5 ; ankle PF: 3 /5 Left Lower Extremity: Hip flexion: 3 /5; hip abduction: 3- /5; hip extension: 3-/5; knee extension: 3 /5; knee flexion:3- /5 ankle DF: 3 /5 ; ankle PF: 3 /5 Sensation: Intact Bed Mobility/Transfers: Bed mobility : Independent sit to stand: supervision braces legs against surface as stands for stability stand to sit : CGA and use of UE to slow decent to surface bed to from chair : step turn without device SBA Gait: Contact-guard assist ambulates without assistive device 30 feet demonstrating deviations as follows: wide KRYSTLE, impaired step length and step height, excessive lateral weight shift, high guard position of BUE, intermittent stagger steps and posterior weight shift on heels. CAMPBELL requiring seated rest. Stairs: unable at this time Balance: Static Sitting: Normal Dynamic Sitting: Good impairment noted with forward flexion toward the floor Static Standing: Fair with wide base of support Dynamic Standing: Fair minus Special Tests: 4 STAGE BALANCE TEST: Feet together 6 seconds 1/2 Stance unable without support Tandem stance unable Single leg stance 1 sec after UE support to achieve position unable without UE support Mobility Limitations Standardized Measure [facility] 6 clicks Basic Mobility Inpatient Short Form: Raw Score:20 CMS Score: 35.83% Informed Consent/Education: Patient instructed in purpose of PT consult and plan of care. Assessment: Patient is a 33 year old female referred to physical therapy services with the diagnosis of alcoholic Liver cirrhosis. Per Pt she gets episodes of nausea when she is anxious. Patient presents with clinical signs and symptoms consistent with admitting diagnosis, as demonstrated by the following impairment level findings: 1. decreased strength BLE major muscle groups proximal>distal 2. impaired standing balance 3. Impaired functional activity tolerance 4. Limitation of B ankle DF ROM Impairments are contributing to the following functional limitations: 1. AMPAC score. 2. decline in transfer skills 3. difficulty ambulating without assistive device and assistance 4. difficulty performing stairs 5. risk for falls 6. increased time to complete ADL/mobility skills Patient is assessed as a Moderate 93031 complexity based on the following: History: 33 yo female with complex past medical history as stated above Examination: demonstrates deficits in strength, balance and mobility level with underlying impairments and functional limitations as outlined above Presentation: evolving Decision Making: moderate Goals: Goals X1 week 1. Independent Transfers with least restrictive device 2. Independent ambulation with least restrictive device 300 feet level surfaces including turns 3. Supervision 13 steps with rail to safely enter and exit her home 4. independent with HEP for strengthening BLE and improving Plan of Care/Treatment Plan: 1-2x/day, 7 days/week x 1 week. Plan of care has been reviewed with the PHYSICIANS ASSISTANT providing the service under Physical Therapy direction. Initiate Physical Therapy intervention for strengthening, bed mobility, transfers, gait, stairs, balance training, use of assistive device. DISCHARGE RECOMMENDATIONS: [] X Home with services PT TREATMENT CODE/TIME: 86140, [id number]
--- NOTE | 2024-10-28 14:51 | PTTR_ITS ---
PT Notes Visit Reasons: Alcoholic Liver Cirrhosis and Hepatic Encephalopat Inpatient Physical Therapy Treatment Note [facility] Date: 10/28/24 PRECAUTIONS:telemetry SUBJECTIVE: Pt reports she just wants to walk, she doesn't want to over analyze where and how she is walking OBJECTIVE: Pt supine in bed her fiance' visiting , ready to take a walk?. ? PAIN: B hands with WB aching VITALS: ?Monitored via telemetry throughout sats on RA 90-93% Therapeutic Activities ([id number][]): Direct one-on-one instruction in dynamic activities to improve functional performance. ?? Provided skilled cues and instruction on performance and technique throughout. Patient education regarding pacing and breathing techniques to maximize activity tolerance? BED MOBILITY/TRANSFERS? Rolling L/R: independent Supine-sit: independent ? Sit-supine: independent ? Sit-stand: supervision cues to push up with hands ? Stand-sit: supervision cues to reach back? Bed-Chair: ?supervision ? Chair-bed: supervision? Ambulation: Facilitated safe and correct performance of level surface ambulation covering a total distance of 300 feet using use front wheeled walker with contact-guard assist and wheelchair follow for safety. Pt required 3 seated rests to complete the distance. Pt noted B hand pain/aching . Denied headache, chest pain, and lightheadedness throughout activity. Minimal verbal cueing provided for AD management, directional changes, and posture.?(pt declined to have FWW raised to limit WB through UE to reduce pain) ? STAIRS:not assessed? ASSESSMENT: Patient demonstrates improved gait pattern with increased step length narrow base of support with use of FWW. Patient agreeable to use FWW to build activity tolerance and strength. Her goal remains to return home without need to use a device. Patient's fianc? is very supportive and provided encouragement throughout session PLAN: 1-2x/day, 7 days/week x 1 week. Plan of care has been reviewed with the POLICE CRIME SCENE TECHNICIAN providing the service under Physical Therapy direction. Initiate Physical Therapy intervention for strengthening, bed mobility, transfers, gait, stairs, balance training, use of assistive device. TREATMENT CODE/TIME: 60429/ [id number] DISCHARGE RECOMMENDATION: Home with HH PT
--- NOTE | 2024-10-28 14:52 | CHAPLAIN ---
Becca was resting in bed when I visited this morning. She said her SO Arun will be in later. We had a brief conversation and I offered ongoing support.
[2024-10-28 20:43] LABS: Anion Gap 7.9 mmol/L (3-11); BUN 24 mg/dL (7-18); CO2 23.1 mmol/L (21.0-32.0); Calcium 8.4 mg/dL (8.5-10.1); Chloride 105 mmol/L (98-107); Estimated GFR 75.34 (mL/min/1.73m2); Glucose 158 mg/dL (74-106); Magnesium 1.7 mg/dL (1.8-2.4); Potassium 4.8 mmol/L (3.5-5.1); Sodium 136 mmol/L (136-145)
[2024-10-28] MEDS: Magnesium Oxide 400 MG TAB PO (21:19)
[2024-10-29] VITALS (18 sets, daily range): BP systolic 121–137; BP diastolic 56–90; PULSE 86–111; RESP 20–33; TEMP 36.7–37.6; O2SAT 90–95
[2024-10-29] MEDS: DOXYCYCLINE 100 MG in Normal Saline 100 ML IVPB ×2 (06:16→18:15)
[2024-10-29 06:50] LABS: HCT 25.4 % (36.0-46.0); HGB 8.6 g/dL (11.2-15.7); MCH 36.8 pg (27.0-33.0); MCHC 33.9 % (32.0-36.0); MPV 10.5 fL (8.0-11.0); RBC 2.34 10^6/uL (3.93-5.22); RDW-SD 82.1 fL; WBC 20.86 10^3/uL (4.4-10.8)
[2024-10-29 07:17] LABS: MCV 109 fL (80-95)
[2024-10-29 07:18] LABS: Platelet Count 85 10^3/uL (130-400); RDW 21.1 % (11.7-14.6)
[2024-10-29 07:23] LABS: ALT 108 U/L (14-59); AST 235 U/L (15-37); Albumin 2.3 g/dL (3.4-5.0); Anion Gap 8.7 mmol/L (3-11); BUN 24 mg/dL (7-18); CO2 22.3 mmol/L (21.0-32.0); Calcium 8.7 mg/dL (8.5-10.1); Chloride 107 mmol/L (98-107); Estimated GFR 75.34 (mL/min/1.73m2); Glucose 138 mg/dL (74-106); Potassium 4.6 mmol/L (3.5-5.1); Sodium 138 mmol/L (136-145); Total Protein 6.1 g/dL (6.4-8.2)
[2024-10-29 07:24] LABS: ALT 107 U/L (14-59); AST 237 U/L (15-37); Albumin 2.3 g/dL (3.4-5.0); Total Protein 6.1 g/dL (6.4-8.2)
[2024-10-29 07:26] LABS: INR 2.7 (0.9-1.1)
[2024-10-29 07:37] LABS: Alkaline Phosphatase 155 U/L (46-116)
[2024-10-29 07:39] LABS: Bilirubin, Direct 28.7 mg/dL (0.0-0.2)
[2024-10-29 07:41] LABS: Bilirubin, Total 41.4 mg/dL (0.2-1.0)
[2024-10-29 07:42] LABS: Alkaline Phosphatase 155 U/L (46-116); Bilirubin, Total 41.4 mg/dL (0.2-1.0)
--- NOTE | 2024-10-29 08:34 | W.PM.PROGNOT ---
Date of Service Date of service: 10/29/24 Time of Service: 08:34 Assessment and Plan Assessment and plan (1) Acute liver failure: Status: Acute Assessment and plan: -acute on chronic liver failure presenting with elevated bili/INR and some enceophalopathy and organ damage with MAO. -On admission hemodynamically stable without severe systemic inflammation. -Case reviewed with Dr. Majano at [facility] GI on admission and 10/24. -Case reviewed 10/25 with [facility] and [facility] transplant hepatology services. She is not a candidate for transplant as she was drinking despite known liver disease -Overall some slight improvement in GFR and sodium is encouraging, but prognosis remains challenging -Na-MELD - 38 on admission (65% mortality in 90 days) -Maddrey's Discriminant Function - 113 Poor prognosis, started methylprednisolone as below, though consider stopping if signs of worsening infection per GI. -Stopped diuresis given concern for HRS -Consulted surgery to consider paracentesis w/ fluid analysis, but too late to help guide therapy so deferred -Echo 10/24 showed normal LVEF, collapsible IVC at that point. -Started IV CTX for possible SBP w/ AMS on admission, expanded to Pip/tazo and doxy 10/25 with possible lung infiltrate. -S/p albumin infusion 100g x 2 days given some degree of hepatorenal syndrome -encephalopathy appears to be improving, will continue with lactulose -Not a transplant candidate as above -Case reviewed with [facility] again GI 10/26, no major changes recommended. -Na, K, remain WNL -Tbili level at 39, appears to be mostly conjugated, diminishing concerns for hemolysis -Hb stable in high 7's-mid 8's -Platlets 138->91->75->85 as of AM 10/29 -Cr. improving, down to 1 from a peak of 1.5 on admission -WBC increased from 14 to 20, no fevers or signs of infection, may be secondary to steroids, will continue zosyn for possible PNA and SBP -continue to trend CMP (2) Acute alcoholic hepatitis: Status: Acute Assessment and plan: -See above, on steroids -Monitor response, continue x 28 days if responding per Lille score at day 7 -Started PPI for bleeding prophylaxis, will continue (3) Acute hypoxic respiratory failure: Status: Acute Assessment and plan: -CXR c/w bilateral pneumonia, expanded antibiotics as above -She did respond to furosemide, creatinine trended down despite this. -Clinically still c/w some pulmonary edema on exam and POCUS though hard to differentiate from sergio pneumonia or ARDS developing. -s/p additional dose of lasix on 10/27 -patient now transitioned to RA as of PM 10/28 (4) Acute hyponatremia: Status: Acute Assessment and plan: -Associated with decompenated cirrhosis. -Treating as above, stopped renal toxins, giving albumin, fluid restrict. -Resolved as of AM 10/26 (5) Hypokalemia: Status: Acute Assessment and plan: -Additional more aggressive repletion IV and today orally -Mg normalized (6) Leukocytosis: Status: Acute Assessment and plan: -This maybe reactive considering her alcoholic liver cirrhosis ad steroids -Blood Cx NGTD, u/a negative. -CT C/A/P without clear source of infection x possible lung infiltrate. Given developing hypoxia 10/25 added doxy, then expanded to pip/tazo with doxy. -Discussed paracentesis w/ fluid analysis, but surgery declines as it would not affect management. (7) Macrocytic anemia: Status: Acute Assessment and plan: - Folic Acid and B12 okay, iron not low. - No signs of active bleed, but high risk for bleeding, as well as bone marrow suppression and gastritis - Transfused x 1 unit 10/24 and again 10/25 - She may be hemolyzing per GI consult, which would make sense with bili increasing. -given vitamin k 10mg IV 10/26 -monitor direct bili as above (8) Hepatorenal syndrome: Status: Acute Assessment and plan: -as above (9) Acute hepatic encephalopathy: Status: Acute Assessment and plan: as above, still mildly encephalopathic, though improved as noted above (10) Alcohol abuse: Assessment and plan: Discussed goal of sobriety, offer treatment options as we approach discharge. She has had a history of medical management with naltrexone, baclofen, but options limited with hepatic failure. Palliative on board, partner aware. (11) Palliative care encounter: Status: Acute Assessment and plan: -Previous provider discussed tenuous prognosis. She voiced understanding. I do think she gets it. I voiced my support for her choices but also suggested she consider reconciliation with her mom/family given her situation. Exam Narrative Exam Narrative: chronically ill appearing female laying in bed in no acute distress, severely jaundiced with scleral icterus, awake but fatigued, AOx4, heart RRR, lungs CTAB, abdomen obese but soft, non-tender, non-distended Objective Last Vital Signs Temp 98.1 F 10/28/24 09:20 Pulse 96 H 10/29/24 00:00 Resp 29 H 10/29/24 04:00 BP 135/81 10/28/24 16:23 Pulse Ox 92 10/29/24 00:00 Laboratory Results - last 24 hr 10/28/24 10/29/24 10/29/24 20:25 06:15 06:15 WBC 20.86 H RBC 2.34 L Hgb 8.6 L Hct 25.4 L MCV 109 H MCH 36.8 H MCHC 33.9 RDW 21.1 H Plt Count 85 L MPV 10.5 PT 25.0 H INR 2.7 H Sodium 136 138 Potassium 4.8 4.6 Chloride 105 107 Carbon Dioxide 23.1 22.3 Anion Gap 7.9 8.7 BUN 24 H 24 H Creatinine 1.0 1.0 Est GFR (CKD-EPI 2020) 75.34 75.34 Glucose 158 H 138 H Calcium 8.4 L 8.7 Magnesium 1.7 L Total Bilirubin 41.4 H* 41.4 H* Conjugated Bilirubin 28.7 H AST 235 H ALT Alkaline Phosphatase Total Protein Albumin 10/29/24 10/29/24 10/29/24 06:15 06:15 06:15 WBC RBC Hgb Hct MCV MCH MCHC RDW Plt Count MPV PT INR Sodium Potassium Chloride Carbon Dioxide Anion Gap BUN Creatinine Est GFR (CKD-EPI 2020) Glucose Calcium Magnesium Total Bilirubin Conjugated Bilirubin AST 237 H ALT 108 H 107 H Alkaline Phosphatase 155 H 155 H Total Protein 6.1 L Albumin 10/29/24 10/29/24 06:15 06:15 WBC RBC Hgb Hct MCV MCH MCHC RDW Plt Count MPV PT INR Sodium Potassium Chloride Carbon Dioxide Anion Gap BUN Creatinine Est GFR (CKD-EPI 2020) Glucose Calcium Magnesium Total Bilirubin Conjugated Bilirubin AST ALT Alkaline Phosphatase Total Protein 6.1 L Albumin 2.3 L 2.3 L Time Spent with Patient Time Spent with Patient: >50 minutes Time was spent: preparing to see the patient(eg.review tests), obtaining and/or [facility], ordering medications,tests, procedures, referring, communicating with other health intensive care medicine specialist, indepentently interpreting results, counseling the patient and care coordination
[2024-10-29] MEDS: Pantoprazole 40 MG VIAL IVP (08:41)
[2024-10-29] MEDS: methylPREDNISolone 4 MG TAB 32 MG PO (08:42)
[2024-10-29] MEDS: Normal Saline Flush 10 ML SYR IVP ×3 (08:42→20:35)
[2024-10-29] MEDS: Thiamine 100 MG TAB PO (08:42)
[2024-10-29] MEDS: Magnesium Oxide 400 MG TAB PO (08:43)
[2024-10-29] MEDS: Citalopram 20 MG TAB 10 MG PO (08:43)
[2024-10-29] MEDS: Folic Acid 1 MG TAB PO (08:43)
--- NOTE | 2024-10-29 09:07 | CMPROGNOTE_ITS ---
Date of service: 10/29/24 Time of Service: 09:07 Care Management Progress Note Progress Note Text Progress Note Text: Becca is lying in bed and appears to be sleeping comfortably when CM entered her room. She easily wakes up and shared that she's not feeling well. CM offered to come back at a later time, and she agrees. Sandi is admitted for acute on chronic liver failure and her prognosis remains challenging (per provider); Palliative is following her goals of care. Her Bilirubin is extremely elevated, however some improvement is noted with her GFR and Sodium. An APS report for self neglect is being investigated by Pelon Robbins from [employer]. Renee from [employer] has been in contact with [employer] Robbins and reports that he may reach out to CM. CM will follow. Discharge Anticipated Barriers to Discharge: Medical Status Patient/Family Education Needs: Review discharge instructions, discuss Ask Me Three Plan: Becca is being closely monitored and treated for acute on chronic liver failure and is clinically very ill. Her prognosis is challenging and her discharge plan remains uncertain at ths time. Conciderations known at this time: PT recommends home with New PT and pt is interested in sobriety resources, when more stable and approaching discharge. At this time, pt is not a candidate for a liver transplant at this time and Palliative is following her goals of care.There is also an APS report (for self neglect made by family) being reviewed by Pelon Robbins at [facility]. CM will make every attempt to follow patients wishes and support a discharge plan that is safe and patient centered. Social Determinants of Health Screening Will the Patient Participate in the Screening?: Unable to obtain
--- NOTE | 2024-10-29 10:59 | PCPN_ITS ---
Date of service: 10/29/24 Time of Service: 13:10 Assessment and Plan Assessment and plan (1) Acute liver failure: Status: Acute Assessment and plan: acute on chronic, decompensated (ascites, HRS, encephalopathy, jaundice) initially diagnosed 3 years ago, no active engagement or treatments Case [place] [place]; not transplant candidate, no changes recommended - pRBC infusions /6 and 4/7 and albumin infusions 100g x2 - Na, Tbili, Hbg, INR improving, as per HPI - continues methylprednisolone, lactulose, PPI for proph; abx for proph SBP (2) Hepatorenal syndrome: Status: Acute (3) Jaundice: Status: Acute (4) Acute hepatic encephalopathy: Status: Acute Assessment and plan: improved continue lactulose (5) Acute hypoxic respiratory failure: Status: Acute Assessment and plan: CXR consistent w/bilat PNA, doxy and pip/marito (6) Muscle weakness: (7) Mixed anxiety and depressive disorder: Assessment and plan: Started therapy/counseling recently. (8) Alcohol use disorder: Status: Acute Assessment and plan: No ETOH use x10 days prior to presentation. longest period of sobriety in 3 years is 3 mos interested in engaging with power and recovery superintendent, working w/CM for coordination She is open to ETOH deterrent medication. She has been on naltrexone in the past but prefers to avoid due to feeling drugged. (9) Palliative care encounter: Status: Acute Assessment and plan: PC will continue to follow Becca closely during this hospitalization and after discharge home. - continue to review best case scenario path, steps to get there - only reviewing worst case if worsening progression of disease or if Becca wishes to review CODE STATUS reviewed, she is clear she is a FULL CODE. (10) ACP (advance care planning): Status: Acute Assessment and plan: Per previous Palliative conversation: reviewed Advanced Directive, importance of reviewing care preferences w/[facility] and documenting preferences for the just in case, worst case scenario - Becca at this time wants all treatment, including CPR, to attempt to keep her alive. She would want all interventions tried. IF there is little/no chance she would regain consciousness, or come off of machines, she would want not want to be kept alive in vegetative state, Arun is aware and reports they have reviewed this together reviewed liver disease and her personal history, severity of current status including renal involvement reviewed current care plan and preferences; reviewed how team wants to ensure she knows how sick she is, make sure she resolves any relationships she needs/wants in the chance that she does not survive. Subjective Subjective Interval history since last seen: Becca has been seen by Jenelle Soto NP for Palliative care 2x on this admission. See previous palliative notes for details. She is a 33 year old female with acute liver failure in the setting of alcoholic cirrhosis. She was seen for Palliative f/u. She was alone at the time of the visit. She reports that she was drinking about 4 white claws per day, sometimes more. She did not drink any ETOH x10 days prior to her presentation to the ED. She is open to trying ETOH deterrent medication. She has been on naloxone about a year ago but she felt drugged so she does not want to try that again. She recently started therapy/counseling. She reports past trauma history. She also reports that a family member recently and she is executor of the [employer]. Lucien left 2 sons behind and she has a difficult relationship with one of the sons. She is his landlord. She reports that she had to go into his apartment with a skiver machine. She did not feel the cat was being cared for and took it. She went on to be served with papers from the police for felony burglary charges, which has been a significant stressor for her. Reviewed CODE STATUS. She is clear she wishes to remain a FULL CODE. She did [facility] paperwork to name her sig other, Arun. Exam Narrative Exam Narrative: General: chronically ill appearing 33 y/o F lying in ICU bed HEENT: skin is jaundiced, +scleral icterus, atraumatic, hearing grossly WNL, mmm Resp: occasionally appears to have mildly increased WOB with talking. Skin: scattered areas of ecchymosis. Ext: moves all 4 extremities freely. Objective Last Vital Signs Temp 36.7 C 10/29/24 08:01 Pulse 98 H 10/29/24 08:01 Resp 28 H 10/29/24 08:01 BP 121/56 L 10/29/24 08:01 Pulse Ox 90 L 10/29/24 08:20 Laboratory Results - last 24 hr 10/28/24 10/29/24 10/29/24 20:25 06:15 06:15 WBC 20.86 H RBC 2.34 L Hgb 8.6 L Hct 25.4 L MCV 109 H MCH 36.8 H MCHC 33.9 RDW 21.1 H Plt Count 85 L MPV 10.5 PT 25.0 H INR 2.7 H Sodium 136 138 Potassium 4.8 4.6 Chloride 105 107 Carbon Dioxide 23.1 22.3 Anion Gap 7.9 8.7 BUN 24 H 24 H Creatinine 1.0 1.0 Est GFR (CKD-EPI 2020) 75.34 75.34 Glucose 158 H 138 H Calcium 8.4 L 8.7 Magnesium 1.7 L Total Bilirubin 41.4 H* 41.4 H* Conjugated Bilirubin 28.7 H AST 235 H ALT Alkaline Phosphatase Total Protein Albumin 10/29/24 10/29/24 10/29/24 06:15 06:15 06:15 WBC RBC Hgb Hct MCV MCH MCHC RDW Plt Count MPV PT INR Sodium Potassium Chloride Carbon Dioxide Anion Gap BUN Creatinine Est GFR (CKD-EPI 2020) Glucose Calcium Magnesium Total Bilirubin Conjugated Bilirubin AST 237 H ALT 108 H 107 H Alkaline Phosphatase 155 H 155 H Total Protein 6.1 L Albumin 10/29/24 10/29/24 06:15 06:15 WBC RBC Hgb Hct MCV MCH MCHC RDW Plt Count MPV PT INR Sodium Potassium Chloride Carbon Dioxide Anion Gap BUN Creatinine Est GFR (CKD-EPI 2020) Glucose Calcium Magnesium Total Bilirubin Conjugated Bilirubin AST ALT Alkaline Phosphatase Total Protein 6.1 L Albumin 2.3 L 2.3 L
--- NOTE | 2024-10-29 11:46 | PT.INNT ---
PT Notes Visit Reasons: Alcoholic Liver Cirrhosis and Hepatic Encephalopat Sandi was approached for PT at 1030am. Pt sleeping room dark. Pt easily woke to her name called. She declined at that time but agreed to participate at 11:15am. Pt approached again at 11:15 am room dark and pt sleeping, easily woke but She again declined saying her legs hurt too much, she's tired she was not feeling well. Attempted to engage pt in bed level exercises which she also declined. Pt educated that PT would be back after lunch. Nurse notified of pt declining to participate.
--- NOTE | 2024-10-29 14:37 | PT.INTREAT ---
PT Notes Visit Reasons: Alcoholic Liver Cirrhosis and Hepatic Encephalopat Date: 10/29/2024 PRECAUTIONS: telemetry SUBJECTIVE: Pt in bed when approached for therapy this afternoon. Pt reports generalized body malaise, still agreed to participate with therapy session. Therapeutic Activities 34096: Direct one-on-one instruction in dynamic activities to improve functional performance. ?? BED MOBILITY/TRANSFERS? Rolling L/R: Supervision Supine-sit: ?SBA ? Sit-supine: ? SBA? Sit-stand: ? SBA? Stand-sit: ??SBA ? Bed-Chair:? ?SBA ? Chair-bed: SBA Provided skilled cues and instruction on performance and technique throughout. Gait Training 73730: Direct one-on-one instruction and skilled instruction in: Employing an assistive device Modified weight-bearing status Movement sequencing Turning and movement with proper form Provided verbal cues for equipment management and technique Provided instruction in gait pattern Patient education regarding pacing and breathing techniques to maximize activity tolerance? GAIT? Assistive Device: ?? ?FWW ? Weight bearing: FWB Assist: ? CGA? Distance:?? ?150'x2, 200'x1, 50'x2 ? Deviation: ?Slow,sam, low step height, short step length, stoop forward posture? STAIRS:? ?6 step x4, 4 steps x6 Step over step, bilateral handrail CGA ? ASSESSMENT:?Pt very happy with being able to mve about, encourage by her increased capacity to move and walk. PLAN: Continue with balance training, global strengthening and general conditioning for improved safety, mobility and activity tolerance until pt is ready for DC. TREATMENT CODE/TIME: [id number], [id number] 25mins (2:10-2:35pm)
[2024-10-29] MEDS: Potassium Chloride 20 MEQ TABCR 40 MEQ PO (19:34)
[2024-10-29] MEDS: Lactulose 20 GM/30 ML CUP PO (19:35)
[2024-10-30] MEDS: DOXYCYCLINE 100 MG in Normal Saline 100 ML IVPB (06:39)
[2024-10-30 06:40] LABS: HCT 24.4 % (36.0-46.0); HGB 8.3 g/dL (11.2-15.7); MCH 37.2 pg (27.0-33.0); MPV 10.2 fL (8.0-11.0); RBC 2.23 10^6/uL (3.93-5.22); WBC 19.33 10^3/uL (4.4-10.8)
[2024-10-30 07:04] LABS: ALT 108 U/L (14-59); AST 206 U/L (15-37); Alkaline Phosphatase 133 U/L (46-116); Anion Gap 8.9 mmol/L (3-11); BUN 25 mg/dL (7-18); CO2 23.1 mmol/L (21.0-32.0); CREATININE 0.9 mg/dL (0.55-1.02); Calcium 8.3 mg/dL (8.5-10.1); Chloride 107 mmol/L (98-107); Glucose 151 mg/dL (74-106); Potassium 4.7 mmol/L (3.5-5.1); Sodium 139 mmol/L (136-145)
[2024-10-30 07:11] LABS: Platelet Count 88 10^3/uL (130-400); RDW 20.6 % (11.7-14.6)
[2024-10-30 07:12] LABS: MCV 109 fL (80-95)
[2024-10-30 07:17] LABS: Total Protein 5.7 g/dL (6.4-8.2)
[2024-10-30 07:19] LABS: Bilirubin, Total 38.8 mg/dL (0.2-1.0)
[2024-10-30] MEDS: Normal Saline Flush 10 ML SYR IVP (07:56)
[2024-10-30 08:45] VITALS: BP 132/77; PULSE 90
[2024-10-30] MEDS: methylPREDNISolone 4 MG TAB 32 MG PO (08:55)
[2024-10-30] MEDS: Lactulose 20 GM/30 ML CUP PO (08:58)
[2024-10-30] MEDS: Pantoprazole 40 MG VIAL IVP (08:58)
[2024-10-30] MEDS: Thiamine 100 MG TAB PO (08:59)
[2024-10-30] MEDS: Potassium Chloride 20 MEQ TABCR 40 MEQ PO (08:59)
[2024-10-30] MEDS: Magnesium Oxide 400 MG TAB PO (08:59)
[2024-10-30] MEDS: Citalopram 20 MG TAB 10 MG PO (09:00)
[2024-10-30] MEDS: Folic Acid 1 MG TAB PO (09:00)
[2024-10-30] MEDS: Acetaminophen 325 MG TAB 650 MG PO (09:17)
[2024-10-30 09:58] VITALS: TEMP 37.8
--- NOTE | 2024-10-30 10:59 | PDOC.HHF2F_ITS ---
Home Health Referral Home Health Orders Clinical synopsis of why skilled professionals are needed: EtOH use disorder, EtOH cirrhosis, liver failure, anemia, thrombocytopenia Registered Nurse: Check all that apply Instruct on new or changed medication(s)/assess compliance: Ordered Physical Therapist: Check all that apply Increase strength & endurance for safe mobility at home: Ordered To design/establish home maintenance program: Ordered Fall reduction therapy program for patient with history of frequent falls: Ordered Home safety evaluation and teaching/gait training including stair management (if applicable): Ordered First Aid Trainer: Assist with community resources: Ordered Assist with superintendent container terminal care planning: Ordered Encounter Date and Reason: I certify that a FTF encounter for this patient was performed on October 30, 2024 and that such encounter was related to the primary reason the patient requires home health services. The encounter was conducted in the following manner: * By me as the certifying physician, [employer] MAINFRAME SYSTEMS PROGRAMMER, PA or * By an inpatient physician, [employer] OS MAINFRAME SYSTEMS PROGRAMMER or PA during an inpatient stay who communicated findings to me, Certification And Authentication I certify that I composed the above information based on my clinical judgment relating to this patient's medical condition and, if applicable, clinical findings communicated to me by the NPP or inpatient physician who performed the FTF encounter. Name of Provider that will be monitoring home health services: Dasia Mullins
--- NOTE | 2024-10-30 11:00 | DSE_ITS ---
Date of service: 10/30/24 Time of Service: 11:00 DS: Diagnosis Discharge Diagnosis (1) Acute liver failure: Status: Acute (2) Hepatorenal syndrome: Status: Acute (3) Jaundice: Status: Acute (4) Acute hepatic encephalopathy: Status: Acute (5) Acute hypoxic respiratory failure: Status: Acute (6) Muscle weakness: (7) Mixed anxiety and depressive disorder: (8) Alcohol use disorder: Status: Acute (9) Palliative care encounter: Status: Acute (10) ACP (advance care planning): Status: Acute Discharge Plan Disposition Patient Disposition: Home W/Home Health Services Condition: Improving Discharge Details Reason For Visit: Alcoholic Liver Cirrhosis and Hepatic Encephalopat Admit Date/Time: 10/24/24 01:18 Admit Provider: Jose Michel Attending Provider: Jose Michel Primary Care Provider: Dsaia Mullins Hospital Course Hospital Course: Patient initially presented with signs and symptoms consistent with acute liver failure in the setting of known cirrhosis and alcohol use. On October 25 her case was discussed with [facility] and at [facility] hepatology services were determined the patient was not a transplant candidate at the time given that she had known liver disease and continued to consume alcohol. Her case was also subsequently discussed with [facility] gastroenterology given her admission MELD score of 38 and Maddrey's of 113, she was started on methylprednisolone. During the duration of her hospitalization, her hyponatremia resolved, she received 2 units of packed red blood cells for anemia and has since had stable hemoglobin above 8, and initial decrease of her platelets from 130 down to the lowest of 75 which have since improved to the high 80s, potassium has stabilized, kidney function has improved. At its peak, her total bilirubin was 44.6, but is since decreased the lowest being 38.8. Patient also worked with physical therapy and was determined to benefit from home health physical therapy services. Patient also discussed with multiple people and expressed understanding and wishes to abstain from alcohol. The patient had overall improvement of her mental status/hepatic cephalopathy, and improvement of most of her labs (with the exception of her total bilirubin, which was also determined not to be secondary to hemolysis with elevated conjugated bilirubin), it was determined that she was stable for discharge home with home health services. Patient will also have outpatient labs drawn early next week, as well as recommended close follow-up with her primary care provider and referral sent to [facility] gastroenterology. Home Meds and New Rx's Prescriptions: New citalopram 20 mg Tablet 10 mg PO DAILY Qty: 90 0RF folic acid 1 mg Tablet 1 mg PO DAILY Qty: 90 0RF lactulose 10 gram/15 mL Solution 20 g PO BID Qty: 90 0RF thiamine mononitrate (vit B1) [Vitamin B-1 (mononitrate)] 100 mg Tablet 100 mg PO DAILY Qty: 90 0RF methylprednisolone 32 mg tablet 32 mg PO DAILY Qty: 21 0RF Continued gabapentin 300 mg capsule 300 mg PO DIRECTED Patient Comments: taking maybe 100mg at night Rx Instructions: Take two capsules twice a day and three at HS pantoprazole 40 mg tablet,delayed release (DR/EC) 40 mg PO BID Patient Comments: I take one a day Discontinued Daily Multiple 1 EACH tablet 1 tab-cap PO DAILY norethindrone ac-eth estradiol [Loestrin 08/09 ()] 1 EACH tablet 1 tab-cap PO DAILY Qty: 3 3RF baclofen 5 mg tablet 5 mg PO QHS citalopram 20 mg tablet 20 mg PO DAILY Giulia 24 Fe 1 mg-20 mcg (24)/75 mg (4) tablet 1 tab PO DAILY naltrexone 50 mg tablet 50 mg PO DAILY ibuprofen [Advil Liqui-Gel] 200 MG capsule 800 mg PO PRN PRN Discharge Instructions Activity:: Activity as Tolerated Equipment/Supplies:: No Equipment Needed Diet:: As Tolerated Discharge Orders Discharge Orders: Discharge Order (Routine); Ordered 10/30/24 Ordered By: Chu Boss DS: Summary Time Spent with Patient providing and/or coordinating discharge services: Greater than 30 minutes Status at Discharge Functional status at discharge: independent ambulation Overall status at discharge: patient is back to baseline Mental Status: mental status grossly normal Speech and Movement: speech and movement normal Mood: congruent mood Affect: normal affect Quality:SDOH Health Related Social Needs: No Data to Display Exam Narrative Exam Narrative: chronically ill appearing female laying in bed in no acute distress, severely jaundiced with scleral icterus, AOx4, heart RRR, lungs CTAB, abdomen obese but soft, non-tender, non-distended Psych Mental Status: mental status grossly normal Speech and Movement: speech and movement normal Mood: congruent mood Affect: normal affect DS: Data Vitals/I&O Vitals and I&O: Vital Signs Temperature 100.0 F H 10/30/24 09:58 Temperature Source Temporal Artery Scan 10/30/24 09:58 Pulse 90 10/30/24 08:45 Pulse 96 H 10/29/24 15:17 Respiratory Rate 28 H 10/29/24 14:00 Respiratory Effort Short of Breath, Labored, Accessory Muscle Use 10/26/24 01:30 Respiratory Depth Shallow 10/26/24 01:30 Respiratory Pattern Tachypnea 10/26/24 01:30 Blood Pressure 132/77 10/30/24 08:45 Blood Pressure Mean 90 10/30/24 08:45 Blood Pressure Position Supine 10/24/24 02:15 Pulse Oximetry 95 10/29/24 18:17 Oxygen Delivery Method Room Air 10/30/24 09:58 Oxygen Flow Rate 0 10/30/24 09:58 Fraction of Inspired Oxygen (FIO2) 96 10/25/24 11:25 Pain Level 0 10/30/24 09:58 Comment wrist bp 10/29/24 15:23 Comment Pt figets with and lays on O2 sensor, showing poor reading 10/25/24 00:16 Intake & Output 10/29/24 10/30/24 10/30/24 17:59 05:59 17:59 Intake Total 1300 / 1300 1870 / 3170 50 / 50 Output Total 1200 / 1200 500 / 1700 Balance 100 / 100 1370 / 1470 50 / 50 Weight 285 lb 7.978 oz Intake: IV 200 / 200 220 / 420 50 / 50 Oral 1100 / 1100 1650 / 2750 Output: Urine 1200 / 1200 300 / 1500 Stool 200 / 200 Other: Urine Color Davie Urine Appearance Cloudy Urine Odor Normal Comment unknown amount pt had stool mixed with urine Unmeasured urine amount voided w/ bowel movement. Stool Size Large Moderate Small Stool Characteristics Soft Liquid Liquid Liquid Brown Data Completed and Pending Labs on day of discharge: Labs from last 24 hours 10/30/24 05:30 WBC 19.33 H RBC 2.23 L Hgb 8.3 L Hct 24.4 L MCV 109 H MCH 37.2 H MCHC 34.0 RDW 20.6 H Plt Count 88 L MPV 10.2 Sodium 139 Potassium 4.7 Chloride 107 Carbon Dioxide 23.1 Anion Gap 8.9 BUN 25 H Creatinine 0.9 Est GFR (CKD-EPI 2020) 85.50 Glucose 151 H Calcium 8.3 L Total Bilirubin 38.8 H* AST 206 H ALT 108 H Alkaline Phosphatase 133 H Total Protein 5.7 L Albumin 2.0 L PFSH All Active Problems (Updated 10/30/24 @ 10:58 by Chu Boss MD) Acute hypoxic respiratory failure (Acute) SBP (spontaneous bacterial peritonitis) (Acute) Palliative care encounter (Acute) ACP (advance care planning) (Acute) Alcohol use disorder (Acute) Hepatorenal syndrome (Acute) Acute alcoholic hepatitis (Acute) Alcoholic cirrhosis (Acute) Elevated brain natriuretic peptide (BNP) level (Acute) Macrocytic anemia (Acute) Leukocytosis (Acute) Jaundice (Acute) Hypomagnesemia (Acute) Hypokalemia (Acute) Acute hyponatremia (Acute) Anemia (Chronic) Acute hepatic encephalopathy (Acute) Acute liver failure (Acute) Medical History Anemia Muscle weakness Sensory polyneuropathy Alcohol abuse Mixed anxiety and depressive disorder Gastritis Surgical History History of esophagogastroduodenoscopy (EGD) History of liver biopsy Family History Mother Thyroid disorder Social History Smoking/Tobacco Use Status: Never Smoking risk assessment performed?: Yes Alcohol Intake: current Alcohol Intake frequency: a few times a week Alcohol type: beer Drug use: Occasionally Substance use type: marijuana Communication Needs: Corrective Lenses Education Level: master's degree Pets and animals: Yes Pets and animals: cat(s) What type of physical activity do you participate in: occasional exercise Working smoke detector in home: Yes Carbon monox detector in home: Yes Do you feel safe in your relationship?: Yes Time Spent with Patient Time Spent with Patient: <45 minutes Time was spent: preparing to see the patient(eg.review tests), obtaining and/or reviewing separately otained hiistory, ordering medications,tests, procedures, referring, communicating with other health physician locums urgent care, indepentently interpreting results, counseling the patient and care coordination
--- NOTE | 2024-10-30 11:42 | PDOC.CMDIS ---
Date of service: 10/30/24 Time of Service: 11:42 LACE Index Scoring Tool Questions: Length of Stay (in days): 4 - 6 Was the patient admitted via the E.D.?: Yes Comorbidities: Liver or Renal Disease E.D. Visits: 1 Answers: Total Score: 13 Risk of Readmission: High Risk Care Management Discharge Plan Reason for Hospitalization: liver cirrhosis and hepatic encephalopathy Discharge Plan: Becca is discharged home today with new services of RN, PT and MARINE ENGINEER [facility] through [employer]. [facility] has been notified and the appropriate documentation has been sent. MARKY left a VM for her PCP informing them of her discharge and need for a f/u within the week. They were also notified of lab work that was ordered as outpatient. Becca is very excited to go home. She will f/u with her PCP - she was encouraged to call the office Friday morning and she has been referred to [facility] gastroenterology. Becca will transport home in a private vehicle with her SO, Arun. Patient/Family Education Needs: Review of discharge instructions, activity, limitations, and discuss Ask me 3. Services Needed at Discharge: Home Health Care Services (RN, PT, MARINE ENGINEER [facility] through [employer] [facility]) SDOH Health Related Social Needs: No Data to Display
== END 2024-10-30 11:15 | disposition home health service (06) | DRG 432 ==
LOC: ER 10-24 01:27 → ICU 10-24 02:11 → MS 10-25 21:14 → ICU 10-26 01:26
PROVIDERS: Family Medicine; Admitting Provider Student in an Organized Health Care Education/Training Program; Emergency Provider Emergency Medicine; PCP Internal Medicine; Responsible Provider Family Medicine; Visit Provider Student in an Organized Health Care Education/Training Program
DX: K70.31 Alcoholic cirrhosis of liver with ascites; J18.9 Pneumonia, unspecified organism; J96.01 Acute respiratory failure with hypoxia; K72.00 Acute and subacute hepatic failure without coma; K76.7 Hepatorenal syndrome; E87.1 Hypo-osmolality and hyponatremia; Z68.41 Body mass index [BMI] 40.0-44.9, adult; K76.6 Portal hypertension; N17.9 Acute kidney failure, unspecified; K76.82 Hepatic encephalopathy; E87.6 Hypokalemia; E83.42 Hypomagnesemia; M62.81 Muscle weakness (generalized); F10.10 Alcohol abuse, uncomplicated; F41.8 Other specified anxiety disorders; D53.8 Other specified nutritional anemias; D72.829 Elevated white blood cell count, unspecified; K29.70 Gastritis, unspecified, without bleeding; G60.8 Other hereditary and idiopathic neuropathies; E66.01 Morbid (severe) obesity due to excess calories; R29.6 Repeated falls; K70.11 Alcoholic hepatitis with ascites
CPT/HCPCS: 36410; 00123; 36415; 36430; 74177; 80048; 80053; 80076; 82805; 83690; 85027; 86704; 86709; 86803; 86850; 86900; 86901; 86920; 86945; 87040; 87340; 87641; 93005; 93308; 96365; 96366; 97116; 97162; 97530; 99291; J1650; 70450; 71045; 71260; 80320; 80329; 81003; 81015; 82140; 82248; 82607; 82746; 83540; 83550; 83605; 83735; 83880; 84300; 84484; 85014; 85018; 85025; 85610; 86644; 93010; 93306; 99223; 99233; 99239; J0696; J1941; J2060; J2470; J2543; J3430; J3475; J3480; J3490; J7509; P9016; P9047

== ENCOUNTER 2024-11-02 15:05 | Outpatient (CLI) | payer MEDICAID, SELFPAY ==
[2024-11-02 18:11] LABS: HCT 24.4 % (36.0-46.0); HGB 8.2 g/dL (11.2-15.7); Immature Grans % 3.9 %; MCH 37.4 pg (27.0-33.0); MCHC 33.6 % (32.0-36.0); MCV 111 fL (80-95); MPV 11.4 fL (8.0-11.0); Nucleated RBC 0.2 % (0.0-0.3); RBC 2.19 10^6/uL (3.93-5.22); RDW-SD 80.8 fL; WBC 19.82 10^3/uL (4.4-10.8)
[2024-11-02 18:16] LABS: INR 2.5 (0.9-1.1); Prothrombin Time 23.2 sec (9.1-11.1)
[2024-11-02 18:30] LABS: ALT 146 U/L (14-59); AST 213 U/L (15-37); Alkaline Phosphatase 171 U/L (46-116); Anion Gap 13.6 mmol/L (3-11); BUN 47 mg/dL (7-18); CO2 17.4 mmol/L (21.0-32.0); CREATININE 1.8 mg/dL (0.55-1.02); Chloride 102 mmol/L (98-107); Estimated GFR 37.22 (mL/min/1.73m2); Glucose 142 mg/dL (74-106); Potassium 3.5 mmol/L (3.5-5.1); Sodium 133 mmol/L (136-145)
[2024-11-02 18:40] LABS: Bilirubin, Total 41.3 mg/dL (0.2-1.0)
[2024-11-02 18:42] LABS: Absolute Lymphocyte Count 1.39 10^3/uL (1.2-3.4); Absolute Monocyte Count 1.19 10^3/uL (0.1-0.8); Absolute Neutrophil Count 17.05 10^3/uL (1.2-6.7); Bands % 1 %
[2024-11-02 18:43] LABS: Macrocytosis 1+; Ovalocytes 2+; Polychromasia Present
[2024-11-02 18:44] LABS: Platelet Count 98 10^3/uL (130-400)
[2024-11-02 18:45] LABS: Diff Comment Manual Differential
[2024-11-02 18:56] LABS: Total Protein 5.6 g/dL (6.4-8.2)
== END 2024-11-02 15:06 | disposition home or self-care (01) ==
LOC: LBO 15:05
PROVIDERS: PCP Internal Medicine; Visit Provider Family Medicine
DX: K76.7 Hepatorenal syndrome (principal); K70.10 Alcoholic hepatitis without ascites; K70.30 Alcoholic cirrhosis of liver without ascites; K76.82 Hepatic encephalopathy; K72.00 Acute and subacute hepatic failure without coma; D53.9 Nutritional anemia, unspecified; D72.829 Elevated white blood cell count, unspecified; D64.9 Anemia, unspecified
CPT/HCPCS: 80053; 85025; 85610